=== PATIENT | female | born 1970 | race Hispanic/Latino ===

== ENCOUNTER 2017-09-24 10:52 | Emergency (ER) | payer MEDICARE, OTHER ==
[2017-09-24 11:15] VITALS: BP 121/68; PULSE 72; RESP 18; TEMP 98.3; O2SAT 96; BMI 19.3
[2017-09-24] MEDS ORDERED: TDAP Vaccine 0.5 mL Syr IM ONE (11:52)
--- NOTE | 2017-09-24 11:53 | ED PDOC ---
Arrival/HPI - General Chief Complaint: Trauma Time Seen by Provider: 09/24/17 11:52 Historian: Patient, Spouse - History of Present Illness Narrative History of Present Illness (Text): 09/24/17 11:53 This 47 yo female presents to this ED c/o RAMOS x COATER SLATE. Patient stated she slipped and ice, causing her to fall backwards. She denies loc, diplopia, n/v, or dizziness. She noted bleeding form the back of head. Last tetanus is UKN Time/Duration: Other (see hpi) Context: Home Past Medical History - Provider Review Nursing Documentation Reviewed: Yes - Infectious Disease Hx of Infectious Diseases: None - Tetanus Immunization Tetanus Immunization: Up to Date - Reproductive Menopause: Yes - Past Medical History Past Medical History: No Previous - Psychiatric Hx Psychophysiologic Disorder: No Hx Anxiety: Yes Hx Bipolar Disorder: Yes Hx Depression: Yes Hx Emotional Abuse: No Hx Hallucinations: No Hx Panic Disorder: No Hx Post Traumatic Stress Disorder: No Hx Psychosis: No Hx Physical Abuse: No Hx Schizophrenia: No Hx Sexual Abuse: No Hx Substance Use: Yes (3x's week) - Surgical History Hx Section: Yes - Anesthesia Hx Anesthesia: Yes Hx Anesthesia Reactions: No Hx Malignant Hyperthermia: No - Suicidal Assessment Feels Threatened In Home Enviroment: No Family/Social History - Physician Review Nursing Documentation Reviewed: Yes Family/Social History: Other (noncontributory) Smoking Status: Light Smoker < 10 Cigarettes Daily Hx Alcohol Use: Yes (sober 10yrs) Hx Substance Use: Yes (3x's week) Substance used: Marijuana Hx Substance Use Treatment: No Allergies/Home Meds Allergies/Adverse Reactions: Allergies No Known Allergies Allergy (Verified 09/24/17 11:21) Home Medications: Home Meds Medication Instructions Recorded Confirmed ARIPiprazole [Abilify] 5 mg PO DAILY 12/09/14 09/24/17 Dexlansoprazole [Dexilant] 60 mg PO DAILY 09/24/17 09/24/17 Divalproex [Depakote ER] 500 mg PO HS 09/24/17 09/24/17 diaZEpam [Valium] 5 mg PO TID 09/24/17 09/24/17 traZODone [Desyrel] 100 mg PO HS 09/24/17 09/24/17 Review of Systems - Review of Systems Constitutional: Normal. absent: Fatigue, Weight Change, Fevers Eyes: Normal ENT: Normal Respiratory: Normal Cardiovascular: Normal Gastrointestinal: Normal Genitourinary Female: Normal Musculoskeletal: Normal Skin: Laceration (scalp laceration) Neurological: Headache. absent: Dizziness, Focal Weakness, Gait Changes, Speech Changes, Facial Droop, Disequilibrium, Seizure Endocrine: Normal Hemo/Lymphatic: Normal Psychiatric: Normal Physical Exam Vital Signs Temp Pulse Resp BP Pulse Ox 09/24/17 11:13 98.3 F 72 18 121/68 96 Temperature: Afebrile Blood Pressure: Normal Pulse: Regular Respiratory Rate: Normal Appearance: Positive for: Well-Appearing, Non-Toxic, Comfortable Pain Distress: None Mental Status: Positive for: Alert and Oriented X 3 - Systems Exam Head: Present: Normocephalic, Laceration (posterior scalp laceration , approx. 2.6 cm, superficial), Other (no raccoon sign. No bailey sign) Pupils: Present: PERRL, Other (no hyphema) Extroacular Muscles: Present: EOMI. No: Entrapment Conjunctiva: Present: Normal Ears: Present: Normal, NORMAL TM, Other (no hemotympanum) Mouth: Present: Moist Mucous Membranes Neck: Present: Normal Range of Motion, Trachea Midline. No: Meningeal Signs, MIDLINE TENDERNESS, Lymphadenopathy Respiratory/Chest: Present: Clear to Auscultation, Good Air Exchange. No: Respiratory Distress, Accessory Muscle Use, Wheezes, Retracting, Rhonchi Cardiovascular: Present: Regular Rate and Rhythm, Normal S1, S2. No: Murmurs Abdomen: Present: Normal Bowel Sounds. No: Tenderness, Distention, Peritoneal Signs Back: Present: Normal Inspection Upper Extremity: Present: Normal Inspection, Normal ROM. No: Cyanosis, Edema Lower Extremity: Present: Normal Inspection, Normal ROM. No: Edema Neurological: Present: GCS=15, CN II-XII Intact, Speech Normal, Normal Sensory Function, Normal Cerebellar Funct, Gait Normal Skin: Present: Warm, Dry, Normal Color. No: Rashes Psychiatric: Present: Alert, Oriented x 3, Normal Insight, Normal Concentration Medical Decision Making ED Course and Treatment: 09/24/17 13:29 Re-evaluation. Patient feels better. Discussed results and plan with patient who expresses understanding. All questions answered and there is agreement with the plan to discharge home with instructions. Patient stable for discharge. Return if symptoms persist or worsen. Patient remained stable during the course of ED visit. CT scan was negative. One staple was used to close scalp laceration. Patient was recommended to have staple removed in 7 days, and to return to ED if RAMOS worsen, nausea, vomiting, diplopia, dizziness, abnormal gait or worsening of symptoms. Re-evaluation Time: 13:29 Reassessment Condition: Re-examined, Improved - RAD Interpretation Narrative RAD Interpretations (Text): 09/24/17 13:07 PROCEDURE: CT HEAD WITHOUT CONTRAST. HISTORY: RAMOS s/p trauma COMPARISON: Unenhanced head CT 09/29/2012 TECHNIQUE: Axial computed tomography images were obtained through the head/brain without intravenous contrast. Radiation dose: Total exam DLP = 770.58 mGy-cm. This CT exam was performed using one or more of the following dose reduction techniques: Automated exposure control, adjustment of the mA and/or kV according to patient size, and/or use of iterative reconstruction technique. FINDINGS: HEMORRHAGE: No intracranial hemorrhage. BRAIN: Normal cardenas-white matter differentiation and density are appreciated throughout the cerebrum and cerebellum with the brainstem appearing unremarkable as well. There is no mass effect. There is no suspicious extra-axial fluid collection and the midline brain anatomy appears diffusely unremarkable. VENTRICLES: Unremarkable. No hydrocephalus. CALVARIUM: No destructive bony lesion or displaced fracture identified including through the skullbase. PARANASAL SINUSES: Unremarkable as visualized. No significant inflammatory changes. MASTOID AIR CELLS: Unremarkable as visualized. No inflammatory changes. OTHER FINDINGS: None. IMPRESSION: Unremarkable unenhanced CT of the Head. No intracranial hemorrhage or fracture is appreciable. Overall stable appearance compared prior to dated 09/29/2012. Radiology Orders: 09/24/17 11:52 HEAD W/O CONTRAST [CT] Stat - Medication Orders Current Medication Orders: Discontinued Medications Tetanus/Reduced Diphtheria/Acell Pertussis (Boostrix Vaccine Inj) 0.5 ml IM .ONCE ONE Stop: 09/24/17 11:53 Last Admin: 09/24/17 12:39 Dose: 0.5 ml Immunization Registry Document 09/24/17 12:39 EWO (Rec: 09/24/17 12:39 EWO [id number]) Immunization Registry Consent Date 09/24/17 - Procedure PROCEDURE NOTE (Text): 09/24/17 13:29 PROCEDURE: LACERATION REPAIR Performed by the emergency provider Location: right posterior scalp Length: 2.6 cm Description: clean wound edges, no foreign bodies Distal CMS: Normal. No deficits. Neurovascularly intact. Anesthesia: none Preparation: The wound was cleaned with NS and Betadyne. The area was prepped and draped in the usual sterile fashion. Exploration: The wound was explored and no foreign bodies were found. Procedure: The wound was closed with narciso. There was good approximation. In total, one staple was used. Post-Procedure: Good closure and hemostasis. The patient tolerated the procedure well and there were no complications. CSM remains intact. Post procedure dressing applied. Disposition/Present on Arrival - Present on Arrival Any Indicators Present on Arrival: No History of DVT/PE: No History of Uncontrolled Diabetes: No Urinary Catheter: No History of Decub. Ulcer: No History Surgical Site Infection Following: None - Disposition Have Diagnosis and Disposition been Completed?: Yes Diagnosis: Head injury due to trauma, Scalp laceration Disposition: HOME/ ROUTINE Disposition Time: 13:32 Patient Plan: Discharge Patient Problems: Current Active Problems Problem Status Onset Head injury due to trauma Acute Scalp laceration Acute Condition: IMPROVED Discharge Instructions (ExitCare): Laceration Repair With Dailey (DC), Minor Head Injury Additional Instructions: Call private doctor for follow up visit in 1-2 days. Staple needs to be removed in 7 days. Keep wound clean and dry for 2 days, then clean wound with soap and water daily. Return to emergency if symptoms worsen. Prescriptions: Ibuprofen [Motrin] 600 mg PO Q8 PRN #20 tab PRN Reason: Pain, Severe (8-10) Referrals: Debra Galeano MD [Primary Care Provider] - Follow up with primary Forms: [employer] (Ethiopian), WORK NOTE
--- NOTE | 2017-09-24 12:38 | CT ---
PROCEDURE: CT HEAD WITHOUT CONTRAST. HISTORY: RAMOS s/p trauma COMPARISON: Unenhanced head CT 09/29/2012 TECHNIQUE: Axial computed tomography images were obtained through the head/brain without intravenous contrast. Radiation dose: Total exam DLP = 770.58 mGy-cm. This CT exam was performed using one or more of the following dose reduction techniques: Automated exposure control, adjustment of the mA and/or kV according to patient size, and/or use of iterative reconstruction technique. FINDINGS: HEMORRHAGE: No intracranial hemorrhage. BRAIN: Normal cardenas-white matter differentiation and density are appreciated throughout the cerebrum and cerebellum with the brainstem appearing unremarkable as well. There is no mass effect. There is no suspicious extra-axial fluid collection and the midline brain anatomy appears diffusely unremarkable. VENTRICLES: Unremarkable. No hydrocephalus. CALVARIUM: No destructive bony lesion or displaced fracture identified including through the skullbase. PARANASAL SINUSES: Unremarkable as visualized. No significant inflammatory changes. MASTOID AIR CELLS: Unremarkable as visualized. No inflammatory changes. OTHER FINDINGS: None. IMPRESSION: Unremarkable unenhanced CT of the Head. No intracranial hemorrhage or fracture is appreciable. Overall stable appearance compared prior to dated 09/29/2012.
== END 2017-09-24 13:51 | disposition home or self-care (01) ==
LOC: ED 10:52
DX: S01.01XA Laceration without foreign body of scalp, initial encounter (principal); W00.0XXA Fall on same level due to ice and snow, initial encounter; Y92.89 Other specified places as the place of occurrence of the external cause; Z23 Encounter for immunization

== ENCOUNTER 2017-10-02 11:30 | Emergency (ER) | payer MEDICARE, OTHER ==
[2017-10-02 11:36] VITALS: BMI 19.3
[2017-10-02 11:38] VITALS: BP 95/63; PULSE 73; RESP 19; TEMP 98; O2SAT 99
--- NOTE | 2017-10-02 12:05 | ED PDOC ---
Arrival/HPI - General Chief Complaint: Suture/Staple Removal Time Seen by Provider: 10/02/17 11:52 Historian: Patient - History of Present Illness Narrative History of Present Illness (Text): 10/02/17 11:59 47yo female [id number] for staple removal from her scalp. Ely was placed here on 09/24/17. she denies any headache, purulent discharge, any other complaint. Past Medical History - Provider Review Nursing Documentation Reviewed: Yes - Infectious Disease Hx of Infectious Diseases: None - Tetanus Immunization Tetanus Immunization: Up to Date - Past Medical History Past Medical History: No Previous - Cardiac Hx Pacemaker: No - Neurological Hx Paralysis: No - Hematological/Oncological Hx Blood Transfusions: No - Musculoskeletal/Rheumatological Hx Musculoskeletal Disorders: No - Psychiatric Hx Psychophysiologic Disorder: No Hx Anxiety: Yes Hx Bipolar Disorder: Yes Hx Depression: Yes Hx Emotional Abuse: No Hx Hallucinations: No Hx Panic Disorder: No Hx Post Traumatic Stress Disorder: No Hx Psychosis: No Hx Physical Abuse: No Hx Schizophrenia: No Hx Sexual Abuse: No Hx Substance Use: Yes (SMOKES MARIJUANA NIGHTLY "IT HELPS ME SLEEP") - Surgical History Hx Section: Yes - Anesthesia Hx Anesthesia Reactions: No Hx Malignant Hyperthermia: No - Suicidal Assessment Feels Threatened In Home Enviroment: No Family/Social History - Physician Review Nursing Documentation Reviewed: Yes Family/Social History: Unknown Family HX Smoking Status: Light Smoker < 10 Cigarettes Daily Hx Alcohol Use: Yes (sober 10yrs) Hx Substance Use: Yes (SMOKES MARIJUANA NIGHTLY "IT HELPS ME SLEEP") Substance used: Marijuana Hx Substance Use Treatment: No Allergies/Home Meds Allergies/Adverse Reactions: Allergies No Known Allergies Allergy (Verified 10/02/17 11:36) Home Medications: Home Meds Medication Instructions Recorded Confirmed ARIPiprazole [Abilify] 5 mg PO DAILY 12/09/14 10/02/17 Dexlansoprazole [Dexilant] 60 mg PO DAILY 09/24/17 10/02/17 Divalproex [Depakote ER] 500 mg PO HS 09/24/17 10/02/17 diaZEpam [Valium] 5 mg PO TID 09/24/17 10/02/17 traZODone [Desyrel] 100 mg PO HS 09/24/17 10/02/17 Cholecalciferol (Vitamin D3) 50,000 unit PO MON 10/01/17 10/02/17 [Vitamin D3] Review of Systems - Physician Review All systems were reviewed & negative as marked: Yes - Review of Systems Constitutional: Normal Eyes: Normal ENT: Normal Respiratory: Normal Cardiovascular: Normal Gastrointestinal: Normal Genitourinary Female: Normal Musculoskeletal: Normal Skin: Other (Ely noted in place to her posterior scalp) Neurological: Normal Endocrine: Normal Hemo/Lymphatic: Normal Psychiatric: Normal Physical Exam Vital Signs Reviewed: Yes Vital Signs Temp Pulse Resp BP Pulse Ox 10/02/17 11:38 98.0 F 73 19 95/63 L 99 10/02/17 11:37 98.0 F 73 19 95/63 L 99 Temperature: Afebrile Blood Pressure: Normal Pulse: Regular Respiratory Rate: Normal Appearance: Positive for: Well-Appearing, Non-Toxic, Comfortable Pain Distress: None Mental Status: Positive for: Alert and Oriented X 3 - Systems Exam Head: Present: Atraumatic, Normocephalic Pupils: Present: PERRL Extroacular Muscles: Present: EOMI Conjunctiva: Present: Normal Mouth: Present: Moist Mucous Membranes Neck: Present: Normal Range of Motion Respiratory/Chest: Present: Clear to Auscultation, Good Air Exchange. No: Respiratory Distress, Accessory Muscle Use Cardiovascular: Present: Regular Rate and Rhythm, Normal S1, S2. No: Murmurs Abdomen: Present: Normal Bowel Sounds. No: Tenderness, Distention, Peritoneal Signs Back: Present: Normal Inspection Upper Extremity: Present: Normal Inspection. No: Cyanosis, Edema Lower Extremity: Present: Normal Inspection. No: Edema Neurological: Present: GCS=15, CN II-XII Intact, Speech Normal Skin: Present: Warm, Dry, Normal Color, Other (One staple noted to posterior scalp. No erythema. No purulent discharge. No swelling). No: Rashes Psychiatric: Present: Alert, Oriented x 3, Normal Insight, Normal Concentration Medical Decision Making ED Course and Treatment: 10/02/17 12:11 One staple removed. Edges appear approximated. Disposition/Present on Arrival - Present on Arrival Any Indicators Present on Arrival: No History of DVT/PE: No History of Uncontrolled Diabetes: No Urinary Catheter: No History of Decub. Ulcer: No History Surgical Site Infection Following: None - Disposition Have Diagnosis and Disposition been Completed?: Yes Diagnosis: Removal of staple Disposition: HOME/ ROUTINE Disposition Time: 12:05 Patient Plan: Discharge Condition: STABLE Discharge Instructions (ExitCare): Staple Removal Additional Instructions: Keep wound clean and dry Follow up with your doctor Return to ED for any new or worsening symptoms Referrals: [facility] [place] - Follow up with primary Forms: [employer] (Greenlandic)
== END 2017-10-02 12:32 | disposition home or self-care (01) ==
LOC: ED 11:30
DX: Z48.02 Encounter for removal of sutures (principal); F17.210 Nicotine dependence, cigarettes, uncomplicated

== ENCOUNTER 2017-10-14 10:44 | Day surgery (SDC) | payer MEDICARE, OTHER ==
[2017-10-14 11:55] LABS: BASO # 0.03 K/mm3 (0.0-2.0); BASO % 0.5 % (0.0-3.0); EOS # 0.2 (0.0-0.7); EOS % 3.5 % (1.5-5.0); GRAN # 3.39 (1.4-6.5); GRAN % 51.6 % (50.0-68.0); HEMOGLOBIN 14.5 g/dL (12.0-16.0); LYMPH # 2.6 (1.2-3.4); LYMPH % 38.9 % (22.0-35.0); MEAN CELL VOLUME 92.6 fl (80.0-105.0); MEAN CORPUSCULAR HEMOGLOBIN 32.6 pg (25.0-35.0); MEAN CORPUSCULAR HGB CONC 35.2 g/dl (31.0-37.0); MEAN PLATELET VOLUME 11.3 fl (7.0-11.0); MONO # 0.4 (0.1-0.6); MONO % 5.5 % (1.0-6.0); RBC 4.45 10^6/uL (3.5-6.1); RED CELL DISTRIBUTION WIDTH 12.6 % (11.5-14.5); WHITE BLOOD COUNT 6.6 10^3/ul (4.5-11.0)
[2017-10-14 12:04] LABS: BLOOD UREA NITROGEN 16 mg/dL (7-21); CALCIUM 10.4 mg/dL (8.4-10.5); GFR AFRICAN-AMERICAN > 60; GFR NON-AFRICAN AMERICAN > 60; INR 1.04 (0.93-1.08); PARTIAL THROMBOPLASTIN TIME 29.2 Seconds (25.1-36.5)
[2017-10-14] MEDS ORDERED: Midazolam 2 MG/2 ML VIAL ONE ×2 (12:30→13:01)
[2017-10-14] MEDS ORDERED: Oxycodone/Acetaminophen 5/325 mg Tab PO PRN (13:19)
[2017-10-14] MEDS ORDERED: Sodium Chloride 0.45% 1,000 ML IV SCH (13:30)
[2017-10-14 14:36] VITALS: TEMP 97.9
--- NOTE | 2017-10-14 15:09 | US ---
PROCEDURE: Ultrasound-guided left thyroid fine needle aspiration biopsy. CLINICAL HISTORY: Dominant 12 mm hypoechoic left thyroid nodule with microcalcifications evaluate for malignancy. . PHYSICIAN(S): Prosper Le M.D. TECHNIQUE: The relative risks and indications for the procedure were explained to the patient and consent obtained. The patient was placed supine on the stretcher with the neck extended and preliminary sonography of the thyroid performed. This reveal well-circumscribed hypoechoic 12 mm nodule with microcalcification. The remainder of the thyroid parenchyma is homogeneous in echotexture. The neck was prepped and draped in the usual sterile fashion. Conscious sedation and monitoring were provided throughout the procedure by a nurse. 1% Xylocaine was used to anesthetize the skin and soft tissues at the access site. Three passes with a 22-gauge needle were performed under ultrasound guidance for fine needle aspiration of the elbow mm left thyroid nodule. The slides were reviewed by pathology and deemed adequate. The patient tolerated the procedure well. IMPRESSION: 1. Ultrasound guided fine needle aspiration of a 12 mm hypoechoicnodule in the left thyroid.
[2017-10-15 11:05] VITALS: BP 132/79; PULSE 70; RESP 18; O2SAT 97
== END 2017-10-14 15:18 | disposition home or self-care (01) ==
LOC: SDS 10:44
PROVIDERS: ATTEND Radiology Vascular & Interventional Radiology
DX: E04.1 Nontoxic single thyroid nodule (principal); F17.200 Nicotine dependence, unspecified, uncomplicated; F41.9 Anxiety disorder, unspecified; F32.89 Other specified depressive episodes; K29.70 Gastritis, unspecified, without bleeding; K25.9 Gastric ulcer, unspecified as acute or chronic, without hemorrhage or perforation; K21.9 Gastro-esophageal reflux disease without esophagitis; F12.90 Cannabis use, unspecified, uncomplicated
CPT/HCPCS: 10022; 36415; 76942; 80048; 84703; 85025; 85610; 85730; 88173; 88305; J2001; J2250; J2405; J3010; J7030

== ENCOUNTER 2018-02-07 12:47 | Emergency (ER) | payer MEDICARE, OTHER ==
[2018-02-07 12:48] VITALS: BMI 19.3
[2018-02-07 12:57] VITALS: RESP 18
--- NOTE | 2018-02-07 13:06 | ED PDOC ---
Arrival/HPI - General Chief Complaint: Substance Abuse Time Seen by Provider: 02/07/18 12:48 Historian: Patient, EMS - History of Present Illness Narrative History of Present Illness (Text): 02/07/18 13:00 47 year old female, whose PMH includes substance abuse, who presents to the emergency department via EMS, s/p being found on the street with ETOH intoxication. Patient reports she is currently asymptomatic and admits to suing marijuana today and 2 bags of heroin one day ago. Patient commonly uses 2 bags of heroin. Patient denies chest pain, shortness of breath, headache, dizziness, nausea, vomiting, diarrhea, or other complaints. Time/Duration: Prior to Arrival Symptom Onset: Sudden Symptom Course: Unchanged Context: Street Past Medical History - Provider Review Nursing Documentation Reviewed: Yes - Infectious Disease Hx of Infectious Diseases: None - Tetanus Immunization Tetanus Immunization: Up to Date - Reproductive Menopause: Yes - Past Medical History Past Medical History: No Previous - Cardiac Hx Cardiac Disorders: No Hx Pacemaker: No - Pulmonary Hx Respiratory Disorders: No - Neurological Hx Paralysis: No - Hematological/Oncological Hx Blood Transfusions: No - Musculoskeletal/Rheumatological Hx Musculoskeletal Disorders: No - Psychiatric Hx Emotional Abuse: No Hx Physical Abuse: No Hx Substance Use: Yes (SMOKES MARIJUANA NIGHTLY "IT HELPS ME SLEEP") - Surgical History Hx Section: Yes - Anesthesia Hx Anesthesia Reactions: No Hx Malignant Hyperthermia: No - Suicidal Assessment Feels Threatened In Home Enviroment: No Family/Social History - Physician Review Nursing Documentation Reviewed: Yes Family/Social History: Unknown Family HX Smoking Status: Light Smoker < 10 Cigarettes Daily Hx Alcohol Use: Yes (sober 10yrs) Hx Substance Use: Yes (SMOKES MARIJUANA NIGHTLY "IT HELPS ME SLEEP") Substance used: heroin Hx Substance Use Treatment: No Allergies/Home Meds Allergies/Adverse Reactions: Allergies No Known Allergies Allergy (Verified 10/02/17 11:36) Home Medications: Home Meds Medication Instructions Recorded Confirmed ARIPiprazole [Abilify] 5 mg PO DAILY 12/09/14 10/14/17 Dexlansoprazole [Dexilant] 60 mg PO DAILY 09/24/17 10/14/17 Divalproex [Depakote ER] 500 mg PO HS 09/24/17 10/14/17 diaZEpam [Valium] 5 mg PO TID 09/24/17 10/14/17 traZODone [Desyrel] 100 mg PO HS 09/24/17 10/14/17 Cholecalciferol (Vitamin D3) 50,000 unit PO MON 10/01/17 10/14/17 [Vitamin D3] Review of Systems - Physician Review All systems were reviewed & negative as marked: Yes - Review of Systems Systems not reviewed;Unavailable: Intoxicated Respiratory: absent: SOB Cardiovascular: absent: Chest Pain Physical Exam Vital Signs Reviewed: Yes Vital Signs Temp Pulse Resp BP Pulse Ox 02/07/18 15:48 97.6 F 60 110/63 95 02/07/18 15:12 97.6 F 60 18 110/63 95 02/07/18 12:56 98.0 F 85 18 95/55 L 95 Temperature: Afebrile Blood Pressure: Hypotensive Pulse: Regular Respiratory Rate: Normal Appearance: Positive for: Comfortable. No: Non-Toxic Pain Distress: None - Systems Exam Head: Present: Atraumatic, Normocephalic Pupils: Present: Pinpoint Extroacular Muscles: Present: EOMI Conjunctiva: Present: Normal Respiratory/Chest: Present: Clear to Auscultation, Good Air Exchange. No: Respiratory Distress, Accessory Muscle Use, Wheezes, Decreased Breath Sounds, Rales, Retracting, Rhonchi Cardiovascular: Present: Regular Rate and Rhythm, Normal S1, S2. No: Murmurs Abdomen: Present: Normal Bowel Sounds. No: Tenderness, Distention, Peritoneal Signs, Rebound, Guarding Neurological: Present: GCS=15, CN II-XII Intact Skin: Present: Warm, Dry, Normal Color. No: Rashes Psychiatric: Present: Alert, Intoxicated. 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 - Scribe Statement The provider has reviewed the documentation as recorded by the Rosalbaibsiena Correa Provider Scribe Attestation: All medical record entries made by the Scribe were at my direction and personally dictated by me. I have reviewed the chart and agree that the record accurately reflects my personal performance of the history, physical exam, medical decision making, and the department course for this patient. I have also personally directed, reviewed, and agree with the discharge instructions and disposition. Disposition/Present on Arrival - Present on Arrival Any Indicators Present on Arrival: No History of DVT/PE: No History of Uncontrolled Diabetes: No Urinary Catheter: No History of Decub. Ulcer: No History Surgical Site Infection Following: None - Disposition Have Diagnosis and Disposition been Completed?: Yes Diagnosis: Drug abuse Disposition: HOME/ ROUTINE Disposition Time: 15:00 Condition: GOOD Discharge Instructions (ExitCare): Drug Abuse and Drug Addiction (DC), Drug Abuse Treatment Additional Instructions: MARY MEDINA, thank you for letting us take care of you today. Your provider was Scottie Slaughter DO and you were treated for SUBSTANCE ABUSE. The emergency medical care you received today was directed at your acute symptoms. If you were prescribed any medication, please fill it and take as directed. It may take several days for your symptoms to resolve. Return to the Emergency Department if your symptoms worsen, do not improve, or if you have any other problems. Please contact your doctor or call one of the physicians/clinics you have been referred to that are listed on the Patient Visit Information form that is included in your discharge packet. Bring any paperwork you were given at discharge with you along with any medications you are taking to your follow up visit. Our treatment cannot replace ongoing medical care by a primary care provider outside of the emergency department. Thank you for allowing the [facility] team to be part of your care today. Please look into going into a drug treatment program for your heroin abuse. Follow up with your primary care doctor this week. Forms: [employer] (Arabic)
[2018-02-07 15:19] VITALS: BP 110/63; PULSE 60
[2018-02-07 15:47] VITALS: TEMP 97.6
[2018-02-07 15:49] VITALS: O2SAT 95
== END 2018-02-07 15:48 | disposition home or self-care (01) ==
LOC: ED 12:47
DX: F19.10 Other psychoactive substance abuse, uncomplicated (principal); F17.210 Nicotine dependence, cigarettes, uncomplicated

== ENCOUNTER 2018-05-15 07:38 | Emergency (ER) | payer MEDICARE, OTHER ==
[2018-05-15 07:38] VITALS: BMI 19.3
[2018-05-15 07:51] VITALS: RESP 18
[2018-05-15] MEDS ORDERED: Sodium Chloride 0.9% 1,000 ML IV STA (08:13)
--- NOTE | 2018-05-15 08:21 | ED PDOC ---
Arrival/HPI - General Chief Complaint: Abdominal Pain Time Seen by Provider: 05/15/18 08:07 Historian: Patient - History of Present Illness Narrative History of Present Illness (Text): 05/15/18 08:25 A 48 year old female, whose past medical history includes substance abuse and bipolar disorder, presents to the emergency department complaining of abdominal pain, fever, chills, nausea, and vomiting for the past 2 days. Patient reports having the flu for 2 days. Patient denies any other complaints at this time. PMD: Dr. Galeano Past Medical History - Provider Review Nursing Documentation Reviewed: Yes - Infectious Disease Hx of Infectious Diseases: None - Tetanus Immunization Tetanus Immunization: Up to Date - Reproductive Menopause: No - Past Medical History Past Medical History: No Previous - Cardiac Hx Cardiac Disorders: No Hx Pacemaker: No - Pulmonary Hx Respiratory Disorders: No - Neurological Hx Paralysis: No - Hematological/Oncological Hx Blood Transfusions: No - Musculoskeletal/Rheumatological Hx Musculoskeletal Disorders: No - Psychiatric Hx Emotional Abuse: No Hx Physical Abuse: No Hx Substance Use: Yes (SMOKES MARIJUANA NIGHTLY "IT HELPS ME SLEEP") - Surgical History Hx Section: Yes - Anesthesia Hx Anesthesia Reactions: No Hx Malignant Hyperthermia: No - Suicidal Assessment Feels Threatened In Home Enviroment: No Family/Social History - Physician Review Nursing Documentation Reviewed: Yes Family/Social History: No Known Family HX Smoking Status: Light Smoker < 10 Cigarettes Daily Hx Alcohol Use: Yes (sober 10yrs) Hx Substance Use: Yes (SMOKES MARIJUANA NIGHTLY "IT HELPS ME SLEEP") Substance used: heroin Hx Substance Use Treatment: No Allergies/Home Meds Allergies/Adverse Reactions: Allergies No Known Allergies Allergy (Verified 10/02/17 11:36) Home Medications: Home Meds Medication Instructions Recorded Confirmed ARIPiprazole [Abilify] 5 mg PO DAILY 12/09/14 10/14/17 Dexlansoprazole [Dexilant] 60 mg PO DAILY 09/24/17 10/14/17 Divalproex [Depakote ER] 500 mg PO HS 09/24/17 10/14/17 RX: traZODone [Desyrel] 100 mg PO HS 09/24/17 10/14/17 diaZEpam [Valium] 5 mg PO TID 09/24/17 10/14/17 Cholecalciferol (Vitamin D3) 50,000 unit PO MON 10/01/17 10/14/17 [Vitamin D3] Review of Systems - Physician Review All systems were reviewed & negative as marked: Yes - Review of Systems Constitutional: Fevers, Night Sweats Respiratory: absent: SOB, Cough Cardiovascular: absent: Chest Pain, Palpitations Gastrointestinal: Abdominal Pain, Nausea, Vomiting. absent: Diarrhea Genitourinary Female: absent: Urine Output Changes Neurological: absent: Headache, Dizziness Physical Exam Vital Signs Reviewed: Yes Vital Signs Temp Pulse Resp BP Pulse Ox 05/15/18 07:48 98.3 F 67 18 109/84 99 Temperature: Afebrile Blood Pressure: Normal Pulse: Regular Respiratory Rate: Normal Appearance: Positive for: Well-Appearing, Non-Toxic, Comfortable Pain Distress: None Mental Status: Positive for: Alert and Oriented X 3 - Systems Exam Head: Present: Atraumatic, Normocephalic Pupils: Present: PERRL Extroacular Muscles: Present: EOMI Conjunctiva: Present: Normal Mouth: Present: Moist Mucous Membranes Neck: Present: Normal Range of Motion Respiratory/Chest: Present: Clear to Auscultation, Good Air Exchange. No: Respiratory Distress, Accessory Muscle Use Cardiovascular: Present: Regular Rate and Rhythm, Normal S1, S2. No: Murmurs Abdomen: Present: Tenderness (epigastric region) Back: Present: Normal Inspection Upper Extremity: Present: Normal Inspection. No: Cyanosis, Edema Lower Extremity: Present: Normal Inspection. No: Edema Neurological: Present: GCS=15, CN II-XII Intact, Speech Normal Skin: Present: Warm, Dry, Normal Color. No: Rashes Psychiatric: Present: Alert, Oriented x 3, Normal Insight, Normal Concentration, Anxious Medical Decision Making ED Course and Treatment: 05/15/18 08:22 Impression: 48 female with abdominal pain, fever ,chills , vomiting, nausea. Physical exam shows patient appears to be anxious and has epigastric tenderness. h/o of. suspect gastrits vs pud, vs pancreatitsi. Plan: -- Chest X-ray -- Abd/Pelvis CT -- Labs -- Zofran -- Protonix -- Urinalysis -- Reassess and disposition Prior Visits: Notes and results from previous visits were reviewed. Patient was last seen in the emergency department on 02/07/2018 for ETOH intoxication. Patient was discharged home. Progress Notes: 05/15/2018 10:11 Chest X-ray IMPRESSION: No active pulmonary disease. Dictator: Nori Booker MD 05/15/2018 10:37 Abd/Pelvis CT IMPRESSION: No acute abdominal or pelvic abnormality. Tiny low-attenuation areas in the liver are too small to characterize by CT criteria. Punctate non-o bstructing stone in the lower pole of the right kidney. Dictator: Nori Booker MD 05/15/18 10:43 Patient has been asking for food. Patient is currently stable and states will make an appointment to see PMD in 2 days. 05/15/18 10:48 05/15/18 11:32 labs mild luekocytosis. cxr neg. abd ct neg. pt asking for food - Lab Interpretations I have reviewed the lab results: Yes - RAD Interpretation Radiology Orders: 05/15/18 08:10 CHEST PORTABLE [RAD] Stat - Medication Orders Current Medication Orders: Sodium Chloride (Sodium Chloride 0.9%) 1,000 mls @ 999 mls/hr IV .Q1H1M STA Stop: 05/15/18 09:13 Discontinued Medications Ondansetron HCl (Zofran Inj) 4 mg IVP STAT STA Stop: 05/15/18 08:13 Pantoprazole Sodium (Protonix Inj) 40 mg IVP STAT STA Stop: 05/15/18 08:13 - Scribe Statement The provider has reviewed the documentation as recorded by the Eliana Fritz Provider Scribe Attestation: All medical record entries made by the Scribe were at my direction and personally dictated by me. I have reviewed the chart and agree that the record accurately reflects my personal performance of the history, physical exam, medical decision making, and the department course for this patient. I have also personally directed, reviewed, and agree with the discharge instructions and disposition. Disposition/Present on Arrival - Present on Arrival Any Indicators Present on Arrival: No History of DVT/PE: No History of Uncontrolled Diabetes: No Urinary Catheter: No History of Decub. Ulcer: No History Surgical Site Infection Following: None - Disposition Have Diagnosis and Disposition been Completed?: Yes Diagnosis: Abdominal pain, Leukocytosis Disposition: HOME/ ROUTINE Disposition Time: 10:50 Condition: STABLE Discharge Instructions (ExitCare): Acute Abdomen (Belly Pain), Adult (DC) Additional Instructions: please follow up with your doctor and specialist. return to er with worsening symptoms or concerns. you will need further testing as an outpatient, repeat lab work. return immediately with any worsening. Prescriptions: Famotidine [Pepcid] 20 mg PO DAILY #20 tab Referrals: Hayden Shearer MD [Staff Provider] - Follow up with primary Forms: [employer] (Kinyarwanda)
[2018-05-15 08:56] LABS: BASO # 0.02 K/mm3 (0.0-2.0); BASO % 0.2 % (0.0-3.0); EOS # 0.1 (0.0-0.7); GRAN # 8.78 (1.4-6.5); GRAN % 70.6 % (50.0-68.0); HEMOGLOBIN 13.9 g/dL (12.0-16.0); LYMPH # 2.8 (1.2-3.4); LYMPH % 22.2 % (22.0-35.0); MEAN CELL VOLUME 92.9 fl (80.0-105.0); MEAN CORPUSCULAR HEMOGLOBIN 31.7 pg (25.0-35.0); MEAN CORPUSCULAR HGB CONC 34.2 g/dl (31.0-37.0); MONO # 0.8 (0.1-0.6); RBC 4.38 10^6/uL (3.5-6.1); RED CELL DISTRIBUTION WIDTH 12.7 % (11.5-14.5); WHITE BLOOD COUNT 12.5 10^3/uL (4.5-11.0)
[2018-05-15 09:07] LABS: INR 0.99; PARTIAL THROMBOPLASTIN TIME 26.2 Seconds (25.1-36.5); PROTHROMBIN TIME 11.4 SECONDS (9.4-12.5)
[2018-05-15 09:09] LABS: ALB/GLOB RATIO 1.2 (1.1-1.8); ALBUMIN 4.7 g/dL (3.0-4.8); ALT/SGPT 40 U/L (7-56); AST/SGOT 37 U/L (14-36); BLOOD UREA NITROGEN 17 mg/dL (7-21); CALCIUM 10.8 mg/dL (8.4-10.5); GFR NON-AFRICAN AMERICAN > 60; LIPASE 62 U/L (23-300)
[2018-05-15] MEDS ORDERED: Iohexol 350 MG/100 ML VIAL ONE (09:34)
[2018-05-15 09:53] LABS: PH,URINE 7.5 (4.7-8.0); URINE BILIRUBIN NEGATIVE (NEGATIVE); URINE BLOOD TRACE-INTACT (NEGATIVE); URINE GLUCOSE (UA) NEGATIVE (NEGATIVE); URINE LEUKOCYTE ESTERASE NEGATIVE Leu/uL (NEGATIVE); URINE PROTEIN 100 mg/dL (<30 mg/dL); URINE UROBILINOGEN 0.2 E.U./dL (<1 E.U./dL)
[2018-05-15 09:54] LABS: URINE APPEARANCE SL CLOUDY (CLEAR); URINE COLOR YELLOW (YELLOW)
[2018-05-15 09:57] LABS: HCG,QUALITATIVE URINE NEGATIVE (NEGATIVE)
[2018-05-15 10:11] LABS: URINE RBC 0 - 2 /hpf (0-2)
[2018-05-15 10:12] LABS: URINE AMORPHOUS SEDIMENT SMALL
--- NOTE | 2018-05-15 10:15 | RAD ---
Date of service: 05/15/2018 HISTORY: Abdominal pain COMPARISON: 01/01/2015. FINDINGS: LUNGS: The lungs are well inflated and clear. PLEURA: No pleural effusions or pneumothorax. CARDIOVASCULAR: The heart is normal in size. No aortic atherosclerotic calcification present. OSSEOUS STRUCTURES: Within normal limits for the patient's age. VISUALIZED UPPER ABDOMEN: Normal. OTHER FINDINGS: Nodular densities overlying the lower lobes are compatible with nipple shadows. IMPRESSION: No active pulmonary disease.
--- NOTE | 2018-05-15 10:40 | CT ---
Date of service: 05/15/2018 PROCEDURE: CT Abdomen and Pelvis with contrast HISTORY: Upper abdominal pain COMPARISON: None. TECHNIQUE: CT scan of the abdomen and pelvis was performed without administration of intravenous contrast. Oral contrast was not administered. Coronal and sagittal reformatted images were obtained. Contrast dose: 100 mL Omnipaque 350 Radiation dose: Total exam DLP = 204.64 mGy-cm. This CT exam was performed using one or more of the following dose reduction techniques: Automated exposure control, adjustment of the mA and/or kV according to patient size, and/or use of iterative reconstruction technique. FINDINGS: LOWER THORAX: The visualized lungs are clear. LIVER: The liver is normal in size and there is homogeneous enhancement. There are tiny scattered low-attenuation areas in the liver, too small to characterize by CT criteria. No intrahepatic biliary ductal dilatation. GALLBLADDER AND BILE DUCTS: The gallbladder is contracted. PANCREAS: The pancreas is normal in size with homogeneous enhancement. No gross lesion or ductal dilatation. SPLEEN: Normal in size and appearance. ADRENALS: No discrete nodule. KIDNEYS AND URETERS: Normal in size with homogeneous enhancement. There is a punctate nonobstructing stone in the lower pole of the right kidney. No hydronephrosis. No solid mass. VASCULATURE: No aortic aneurysm. BOWEL: The small bowel loops are normal in caliber. No bowel dilatation or obstruction. The colon is unremarkable. APPENDIX: The appendix is not distinctly visualized however there are no inflammatory changes in the right lower quadrant PERITONEUM: No free fluid. No free air. LYMPH NODES: No enlarged lymph nodes. BLADDER: Partially decompressed. REPRODUCTIVE: The uterus is retroverted and normal in size. BONES: No acute fracture. There are bilateral pars interarticularis defects at L5 with mild anterior listhesis of L5 on S1. OTHER FINDINGS: None. IMPRESSION: No acute abdominal or pelvic abnormality. Tiny low-attenuation areas in the liver are too small to characterize by CT criteria. Punctate nonobstructing stone in the lower pole of the right kidney.
[2018-05-15 10:50] VITALS: O2SAT 98
[2018-05-15 10:52] VITALS: BP 132/77; PULSE 77; TEMP 98.7
--- NOTE | 2018-05-16 09:33 | CARD ---
APPROVED REPORT Date of service: 05/15/2018 EKG Measurement Heart [id number] ID [id number] <Conclusion> Normal sinus rhythm LVH by voltage,new J-point elevations
== END 2018-05-15 10:51 | disposition home or self-care (01) ==
LOC: ED 07:38
DX: D72.829 Elevated white blood cell count, unspecified (principal); R10.9 Unspecified abdominal pain; F31.9 Bipolar disorder, unspecified; F19.10 Other psychoactive substance abuse, uncomplicated
CPT/HCPCS: 71045; 74177; 80053; 80164; 81001; 83690; 83735; 84703; 85025; 85610; 85730; 93005; 96361; 96374; 96375; 99283; C9113; J2405; J7030; Q9967

== ENCOUNTER 2018-05-23 08:53 | Inpatient (IN) | payer MEDICARE, OTHER ==
[2018-05-23 09:18] VITALS: BMI 17.7
[2018-05-23 10:00] LABS: ALB/GLOB RATIO 1.2 (1.1-1.8); ALBUMIN 4.3 g/dL (3.0-4.8); ALT/SGPT 43 U/L (7-56); AST/SGOT 31 U/L (14-36); BLOOD UREA NITROGEN 18 mg/dL (7-21); CALCIUM 9.7 mg/dL (8.4-10.5); GFR NON-AFRICAN AMERICAN > 60
[2018-05-23 10:03] LABS: PH,URINE 6.5 (4.7-8.0); URINE BILIRUBIN NEGATIVE (NEGATIVE); URINE BLOOD TRACE-LYSED (NEGATIVE); URINE GLUCOSE (UA) NEGATIVE (NEGATIVE); URINE LEUKOCYTE ESTERASE NEGATIVE Leu/uL (NEGATIVE); URINE PROTEIN NEGATIVE mg/dL (<30 mg/dL); URINE UROBILINOGEN 0.2 E.U./dL (<1 E.U./dL)
[2018-05-23 10:06] LABS: URINE APPEARANCE CLEAR (CLEAR); URINE COLOR YELLOW (YELLOW)
[2018-05-23 10:10] LABS: BARBITURATES, UR NEGATIVE (NEGATIVE); BENZODIAZEPINES, UR NEGATIVE (NEGATIVE); OPIATES, UR NEGATIVE (NEGATIVE); PHENCYCLIDINE, UR NEGATIVE (NEGATIVE)
[2018-05-23 10:11] LABS: BASO # 0.04 K/mm3 (0.0-2.0); BASO % 0.5 % (0.0-3.0); EOS # 0.2 (0.0-0.7); EOS % 2.6 % (1.5-5.0); GRAN # 4.6 (1.4-6.5); GRAN % 56.8 % (50.0-68.0); HEMOGLOBIN 13.5 g/dL (12.0-16.0); LYMPH # 2.8 (1.2-3.4); LYMPH % 34.2 % (22.0-35.0); MEAN CELL VOLUME 95.5 fl (80.0-105.0); MEAN CORPUSCULAR HGB CONC 33.5 g/dl (31.0-37.0); MEAN PLATELET VOLUME 10.2 fl (7.0-11.0); MONO # 0.5 (0.1-0.6); MONO % 5.9 % (1.0-6.0); RBC 4.22 10^6/uL (3.5-6.1); RED CELL DISTRIBUTION WIDTH 12.9 % (11.5-14.5); WHITE BLOOD COUNT 8.1 10^3/uL (4.5-11.0)
--- NOTE | 2018-05-23 10:16 | ED PDOC ---
Arrival/HPI - General Chief Complaint: Psychiatric Evaluation Time Seen by Provider: 05/23/18 08:55 Historian: Patient - History of Present Illness Narrative History of Present Illness (Text): 05/23/18 10:12 48 year old female, whose past medical history includes substance abuse and bipolar disorder, presents to the emergency department complaining of being in a manic state. She reports experiencing anxiety and insomnia all triggered from daughter's anniversary. She reports she is currently not experiencing sucidal thoughts, but explains "she feels it coming along, as well as negative thoughts." Patient states she called her psychiatrist who did not answer, so instead went to see her PMD, who instructed her to be seen in the ER for evaluation. She currently takes Abilify 5 mg/daily and Valium 5 mg/daily with her last dose of Abilify taken last night. Patient denies any suicidal/homicidal ideation, or any other complaints at this time. PMD: Dr. Galeano Past Medical History - Provider Review Nursing Documentation Reviewed: Yes - Infectious Disease Hx of Infectious Diseases: None - Tetanus Immunization Tetanus Immunization: Up to Date - Past Medical History Past Medical History: No Previous - Cardiac Hx Cardiac Disorders: No Hx Pacemaker: No - Pulmonary Hx Respiratory Disorders: No - Neurological Hx Paralysis: No - Hematological/Oncological Hx Blood Transfusions: No - Musculoskeletal/Rheumatological Hx Musculoskeletal Disorders: No - Psychiatric Hx Psychophysiologic Disorder: Yes Hx Bipolar Disorder: Yes Hx Emotional Abuse: No Hx Physical Abuse: No Hx Substance Use: Yes (SMOKES MARIJUANA NIGHTLY "IT HELPS ME SLEEP") - Surgical History Hx Section: Yes - Anesthesia Hx Anesthesia Reactions: No Hx Malignant Hyperthermia: No - Suicidal Assessment Feels Threatened In Home Enviroment: No Family/Social History - Physician Review Nursing Documentation Reviewed: Yes Family/Social History: No Known Family HX Smoking Status: Light Smoker < 10 Cigarettes Daily Hx Alcohol Use: Yes (sober 10yrs) Hx Substance Use: Yes (SMOKES MARIJUANA NIGHTLY "IT HELPS ME SLEEP") Substance used: heroin Hx Substance Use Treatment: No Allergies/Home Meds Allergies/Adverse Reactions: Allergies No Known Allergies Allergy (Verified 05/24/18 02:31) Home Medications: Home Meds Medication Instructions Recorded Confirmed ARIPiprazole [Abilify] 5 mg PO DAILY 12/09/14 05/26/18 Dexlansoprazole [Dexilant] 60 mg PO DAILY 09/24/17 05/26/18 Divalproex [Depakote ER] 500 mg PO HS 09/24/17 05/26/18 RX: traZODone [Desyrel] 100 mg PO HS 09/24/17 05/26/18 diaZEpam [Valium] 5 mg PO TID 09/24/17 05/26/18 Cholecalciferol (Vitamin D3) 50,000 unit PO MON 10/01/17 05/26/18 [Vitamin D3] Review of Systems - Physician Review All systems were reviewed & negative as marked: Yes - Review of Systems Constitutional: absent: Fevers, Night Sweats Respiratory: absent: SOB Cardiovascular: absent: Chest Pain Gastrointestinal: absent: Abdominal Pain, Diarrhea, Nausea, Vomiting Neurological: absent: Headache, Dizziness Psychiatric: Anxiety. absent: Suicidal Ideation (and no homicidal ideation) Physical Exam Vital Signs Reviewed: Yes Vital Signs Temp Pulse Resp BP Pulse Ox 05/23/18 09:17 98.2 F 72 19 113/77 100 Temperature: Afebrile Blood Pressure: Normal Pulse: Regular Respiratory Rate: Normal Appearance: Positive for: Well-Appearing, Non-Toxic, Comfortable Pain Distress: None Mental Status: Positive for: Alert and Oriented X 3, Agitated - Systems Exam Head: Present: Atraumatic, Normocephalic Pupils: Present: PERRL Extroacular Muscles: Present: EOMI Conjunctiva: Present: Normal Mouth: Present: Moist Mucous Membranes Neck: Present: Normal Range of Motion Respiratory/Chest: Present: Clear to Auscultation, Good Air Exchange. No: Respiratory Distress, Accessory Muscle Use Cardiovascular: Present: Regular Rate and Rhythm, Normal S1, S2. No: Murmurs Abdomen: No: Tenderness, Distention, Peritoneal Signs Back: Present: Normal Inspection Upper Extremity: Present: Normal Inspection. No: Cyanosis, Edema Lower Extremity: Present: Normal Inspection. No: Edema Neurological: Present: GCS=15, CN II-XII Intact, Speech Normal Skin: Present: Warm, Dry, Normal Color. No: Rashes Psychiatric: Present: Alert, Oriented x 3, Normal Insight, Normal Concentration, Anxious, Agitated. No: Suicidal Ideation, Homicidal Ideation Medical Decision Making ED Course and Treatment: 05/23/18 10:16 Impression: 48 year old female with anxiety. No acute findings on physical examinations except patient is anxious, and somewhat agitated (as per patient). Plan: -- Chest X-ray -- Labs -- Urinalysis -- POC Urine Test -- Reassess and disposition Prior Visits: Notes and results from previous visits were reviewed. Patient was last seen in the emergency department on 05/15/2018 for abdominal pain, fever, chills, nausea, and vomiting. Patient was discharged home. Progress Notes: 05/23/18 11:59 Labs reviewed with UDS positive for cannabinoids. Patient is otherwise medically cleared. PES electrocardiograph repairer called at 10:15. Awaiting evaluation. 05/23/18 15:30 Patient evaluated by PES electrocardiograph repairer and signs consent for voluntary admission. Patient is stable for transfer to the floor. - Lab Interpretations Lab Results: 05/23/18 09:30 05/23/18 09:30 Lab Results 05/23/18 09:30: Free T4 Pending, TSH 3rd Generation Pending, Alcohol, Quantitative < 10 05/23/18 09:30: Urine Opiates Screen Negative, Urine Methadone Screen Negative, Ur Barbiturates Screen Negative, Ur Phencyclidine Scrn Negative, Ur Amphetamines Screen Negative, U Benzodiazepines Scrn Negative, U Oth Cocaine Metabols Positive H, U Cannabinoids Screen Positive H 05/23/18 09:30: Sodium 139, Potassium 3.8, Chloride 105, Carbon Dioxide 27, Anion Gap 11, BUN 18, Creatinine 0.8, Est GFR ( Amer) > 60, Est GFR (Non- Af Amer) > 60, Random Glucose 72, Calcium 9.7, Magnesium 2.1, Total Bilirubin 0.3, AST 31, ALT 43, Alkaline Phosphatase 85, Total Protein 7.8, Albumin 4.3, Globulin 3.5, Albumin/Globulin Ratio 1.2 05/23/18 09:30: Urine Color Yellow, Urine Appearance Clear, Urine pH 6.5, Ur Specific [place] 1.025, Urine Protein Negative, Urine Glucose (UA) Negative, Urine Ketones Negative, Urine Blood Trace-lysed H, Urine Nitrate Negative, Urine Bilirubin Negative, Urine Urobilinogen 0.2, Ur Leukocyte Esterase Negative, Urine RBC Pending, Urine WBC Pending 05/23/18 09:30: WBC 8.1, RBC 4.22, Hgb 13.5, Hct 40.3, MCV 95.5, MCH 32.0, MCHC 33.5, RDW 12.9, Plt Count 207, MPV 10.2, Gran % 56.8, Lymph % (Auto) 34.2, [place] % (Auto) 5.9, Eos % (Auto) 2.6, Baso % (Auto) 0.5, Gran # 4.60, Lymph # (Auto) 2.8, [place] # (Auto) 0.5, Eos # (Auto) 0.2, Baso # (Auto) 0.04 I have reviewed the lab results: Yes - RAD Interpretation Narrative RAD Interpretations (Text): 05/23/2018 10:24 Chest X-ray IMPRESSION: No active disease. Dictator: Jay Jay Jaime MD Radiology Orders: 05/23/18 09:21 CHEST PORTABLE [RAD] Stat - PA / MARKETING SALES SUPERVISOR / Resident Statement MD/DO has reviewed & agrees with the documentation as recorded. - Scribe Statement The provider has reviewed the documentation as recorded by the Eliana Fritz Provider Scribe Attestation: All medical record entries made by the Rosalbaibsiena were at my direction and personally dictated by me. I have reviewed the chart and agree that the record accurately reflects my personal performance of the history, physical exam, medical decision making, and the department course for this patient. I have also personally directed, reviewed, and agree with the discharge instructions and disposition. Disposition/Present on Arrival - Present on Arrival Any Indicators Present on Arrival: No History of DVT/PE: No History of Uncontrolled Diabetes: No Urinary Catheter: No History of Decub. Ulcer: No History Surgical Site Infection Following: None - Disposition Have Diagnosis and Disposition been Completed?: Yes Diagnosis: Depression, Bipolar affective, manic, unspec Disposition: HOSPITALIZED Disposition Time: 15:30 Patient Plan: Admission Condition: GOOD
[2018-05-23 10:22] LABS: FREE T4 1.07 ng/dL (0.78-2.19)
[2018-05-23 10:26] LABS: ACETAMINOPHEN < 10.0 ug/ml (10.0-20.0); SALICYLATE < 1 mg/dL (2.0-20.0)
--- NOTE | 2018-05-23 10:28 | RAD ---
Date of service: 05/23/2018 HISTORY: Psych clearance COMPARISON: No prior. FINDINGS: LUNGS: No active pulmonary disease. PLEURA: No significant pleural effusion identified, no pneumothorax apparent. CARDIOVASCULAR: No aortic atherosclerotic calcification present. Normal cardiac size. No pulmonary vascular congestion. OSSEOUS STRUCTURES: No significant abnormalities. VISUALIZED UPPER ABDOMEN: Normal. OTHER FINDINGS: None. IMPRESSION: No active disease.
[2018-05-23 10:34] LABS: URINE WBC 0 - 2 /hpf (0-6)
[2018-05-23 10:35] LABS: URINE AMORPHOUS SEDIMENT FEW; URINE BACTERIA TRACE (NEG)
[2018-05-23 11:56] VITALS: O2SAT 99
[2018-05-23] MEDS ORDERED: Alum-Mag Hydrox-Simethicone Susp (30 mL) PO PRN (15:45)
[2018-05-23] MEDS ORDERED: Magnesium Hydroxide Susp 30 ml UD PO PRN (15:46)
[2018-05-23 16:06] LABS: HDL CHOLESTEROL 90 mg/dL (29-60)
--- NOTE | 2018-05-23 16:14 | CARD ---
APPROVED REPORT Date of service: 05/23/2018 EKG Measurement Heart [id number] <Conclusion> Normal sinus rhythm with sinus arrhythmia Normal ECG
[2018-05-23 16:17] LABS: LDL CHOLESTEROL 61 mg/dL (0-129)
[2018-05-23] MEDS: Divalproex 250 mg DR (BID formulation) PO SCH (21:26)
--- NOTE | 2018-05-24 02:41 | PCM.BM ---
<Bridger Adams - Last Filed: 05/24/18 02:38> Treatment Plan Problems - Problems identified on initial assessmt Anxiety Date Initiated: 05/23/18 Time Initiated: 17:00 Assessment reference: NA Status: Active Priority: 1 Altered Sleep Patterns Date Initiated: 05/23/18 Time Initiated: 17:00 Assessment reference: NA Status: Active Priority: 2 Panic Attacks Date Initiated: 05/23/18 Time Initiated: 17:00 Assessment reference: NA Status: Active Priority: 3 Ineffective Breathing Pattern Date Initiated: 05/23/18 Time Initiated: 17:00 Assessment reference: NA Status: Active Priority: 4 Agitated/Aggressive Behavior Date Initiated: 05/23/18 Time Initiated: 17:00 Assessment reference: NA Status: Active Priority: 5 High Risk: Injury Date Initiated: 05/23/18 Time Initiated: 17:00 Assessment reference: NA Status: Active Priority: 6 Altered Thought Process Date Initiated: 05/23/18 Time Initiated: 17:00 Assessment reference: NA Status: Active Priority: 7 Ineffective Impulse Control Date Initiated: 05/23/18 Time Initiated: 17:00 Assessment reference: NA Status: Active Priority: 8 Medication nonadherence Date Initiated: 05/23/18 Time Initiated: 17:00 Assessment reference: NA Status: Active Priority: 9 Fear Date Initiated: 05/23/18 Time Initiated: 17:00 Assessment reference: NA Status: Active Priority: 10 Treatment assets and liabiliti Patient Assests: negotiates basic needs, cognitively intact Patient Liabilities: substance abuse - Milieu Protocol Maintain good personal hygiene: daily Encourage regular showers, every shift Remind patient to perform daily oral care, every shift Assist patient to perform ADL's Maintain personal safety: every shift Educate patient to report safety concerns to staff, every shift Monitor environment for contraband/sharps Medication safety: Monitor for expected outcome, potential side effects: every shift, Assess barriers to learning: every shift, Assess readiness for medication education: every shift Family Contact Family involvement: Family/SO is involved Family contact: Patient agrees to contact Discharge/Continuing Care - Education Needs Education Needs: Patient Medication, Patient Diagnosis/Disease Process, Patient Coping Skills, Patient Anger Management skills, Patient Placement options, Patient Community resources, Patient Activities of Daily Living, Patient Pain, Patient Nutrition, Patient Uses of Medical Equipment, Patient Health Practices/Safety, Patient Personal Hygiene/Grooming, Patient Aftercare Safety Plan - Discharge Discharge Criteria: Tolerates medication w/o severe side effects <Perlita Issa - Last Filed: 05/24/18 09:00> - Diagnosis (1) Bipolar affective, manic, unspec Status: Acute Interventions: 05/24/18 09:01 Psychoeducation Psychopharmacology/adjustment of medications as needed/ monitoring possible side effects Monitor blood level of mood stabilizers Evaluate pt on daily basis Compliance with medications and follow up appointments Suicide and homicide risk assessment and prevention, coping strategies, safety plan Relapse prevention Reduction of symptoms Improve functional status Family involvement As outpatient: cognitive behavioral therapy (2) Polysubstance abuse Status: Acute Interventions: 05/24/18 09:01 Monitoring withdrawal symptoms Medical detoxification Pharmacotherapy for alcohol/benzos/opioid dependence Maintaining sobriety Relapse prevention Possible rehabilitation Motivational interviewing 12-step programs: AA meetings <Brittany Chen Y - Last Filed: 05/25/18 08:37> Family Contact Family involvement: Family/SO is involved Family contact: Patient agrees to contact - Goals for Treatment Patient goals for treatment: "I'm manic now...I don't want to become depressed."
[2018-05-24 07:26] LABS: BASO # 0.05 K/mm3 (0.0-2.0); BASO % 0.6 % (0.0-3.0); EOS # 0.3 (0.0-0.7); GRAN # 4.83 (1.4-6.5); GRAN % 55.9 % (50.0-68.0); HEMOGLOBIN 15.3 g/dL (12.0-16.0); LYMPH # 3.1 (1.2-3.4); LYMPH % 35.6 % (22.0-35.0); MEAN CELL VOLUME 94.8 fl (80.0-105.0); MEAN CORPUSCULAR HEMOGLOBIN 31.9 pg (25.0-35.0); MEAN CORPUSCULAR HGB CONC 33.6 g/dl (31.0-37.0); MEAN PLATELET VOLUME 10.2 fl (7.0-11.0); MONO # 0.4 (0.1-0.6); MONO % 4.9 % (1.0-6.0); RBC 4.8 10^6/uL (3.5-6.1); RED CELL DISTRIBUTION WIDTH 12.9 % (11.5-14.5); WHITE BLOOD COUNT 8.6 10^3/uL (4.5-11.0)
[2018-05-24 07:38] LABS: ALB/GLOB RATIO 1.2 (1.1-1.8); ALBUMIN 4.7 g/dL (3.0-4.8); ALT/SGPT 46 U/L (7-56); AST/SGOT 36 U/L (14-36); BLOOD UREA NITROGEN 16 mg/dL (7-21); GFR NON-AFRICAN AMERICAN > 60; HDL CHOLESTEROL 110 mg/dL (29-60)
[2018-05-24 07:49] LABS: LDL CHOLESTEROL 68 mg/dL (0-129)
[2018-05-24 07:54] LABS: FREE T4 1.25 ng/dL (0.78-2.19)
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
[2018-05-24] MEDS: Divalproex 250 mg DR (BID formulation) PO SCH (21:10)
[2018-05-25 07:22] LABS: IRON 140 ug/dL (45-180)
[2018-05-25 07:31] LABS: % IRON SATURATION 49 % (20-55); TOTAL IRON BINDING CAPACITY 286 ug/dL (265-497)
--- NOTE | 2018-05-25 11:00 | CON ---
DATE: 05/25/2018 CHIEF COMPLAINT: Psych evaluation, peptic ulcer disease. HISTORY OF PRESENT ILLNESS: Ms. Daniel Kapoor is a 48-year-old, my private patient, with past medical history of substance abuse, bipolar, history of peptic ulcer disease, thyroid problem came to the emergency room in manic stage. The patient reports that she has been unable to sleep for the past 5 days, has been experiencing anxiety, triggered from daughter's anniversary. States that she is currently not experiencing depression, but explains that she feels it coming along as well as negative thoughts. The patient states that she called her psychiatrist who did not answer her, so she came in my office. I then instructed her to go to emergency room for evaluation. Currently, the patient is taking Abilify, Valium. The patient denies suicidal or homicidal ideation and complaining of epigastric pain. PAST MEDICAL HISTORY: Bipolar. Smokes marijuana nightly, it helps to sleep, thyroid problem. FAMILY HISTORY: Father and mother, noncontributory. HABITS: Smoking less than 10 cigarettes. Alcohol, sober 10 years. SUBSTANCE ABUSE: Smokes marijuana nightly. It helps to sleep. Other substances is the heroin. ALLERGIES: THE PATIENT IS NOT ALLERGIC WITH ANY MEDICATION. HOME MEDICATIONS: Abilify, DEXILANT, Valium, Depakote, vitamin D. REVIEW OF SYSTEMS: The patient was seen and examined at the bedside on 05/24/2018, looking comfortable. No nausea, vomiting, or diarrhea. Denied hematuria or hematochezia. No swelling of the legs. No chest pain. No palpitation. No headache. No dizziness. No shortness of breath. PHYSICAL EXAMINATION VITAL SIGNS: Temperature 97.5, pulse 82, blood pressure 138/77, respiratory rate 20. HEENT: Head, normocephalic, atraumatic. Eyes, PERRLA. Extraocular muscles intact. Conjunctivae clear. Nose patent. NECK: Supple. No carotid bruit. No thyromegaly. CHEST: Bilaterally symmetrical. HEART: S1 and S2 positive. LUNGS: Clear to auscultation. ABDOMEN: Soft. Bowel sounds present. No organomegaly. EXTREMITIES: No edema. No cyanosis. NEUROLOGIC: The patient is awake, alert. Moving all four extremities. No focal deficit. LABORATORY DATA: White blood cell 8.6, hemoglobin 15.3, hematocrit 45.4, platelets noted . Sodium 137, potassium 4.82, BUN 15, creatinine 0.7, glucose 91. ASSESSMENT AND PLAN: Ms. Daniel Kapoor is a 48 years old female with hematuria. Drug screening positive for cocaine, cannabinoid, RPR is negative. History of peptic ulcer disease, taking Nexium. Insomnia, schizomania and was manic, cannot sleep. She had other multiple medical admissions due to hallucination, and the patient has history of thyroid problem. Discussion done with nursing staff. The patient is under psychiatrist care. Gastrointestinal and deep vein thrombosis prophylaxis. Repeat labs. We will follow. Debra Galeano MD MTDD
[2018-05-25 13:17] LABS: FOLATE 9.7 ng/mL
--- NOTE | 2018-05-25 15:16 | PCM.PYCHPN ---
Psychiatric Progress Note - Psychiatric Progress Note Patient seen today, length of contact: 30 minutes Patient Chief Complaint: I'm little bit better, but was not able to sleep' Problems Identified/Issues Discussed: Suicide/ homicide prevention, past psychiatric h/o, current psychiatric symptoms, medical problems, risk/benefits and alternatives of medications, medications compliance, coping strategies, substance abuse h/o, relapse prevention, importance of follow up with psychiatrist and therapist, discharge plan. Medical Problems: peptic ulcer disease Diagnostic Results: 05/24/18 07:15 05/24/18 07:15 Lab Results 05/25/18 06:45: Hemoglobin A1c 5.4 05/25/18 06:45: Iron 140, TIBC 286, % Saturation 49 05/25/18 06:45: Triglycerides 98, Cholesterol 171, LDL Cholesterol Direct 65, HDL Cholesterol 93 H, Vitamin B12 662, Folate 9.7 05/24/18 07:15: RPR Nonreactive 05/24/18 07:15: Free T4 1.25, TSH 3rd Generation 1.41 05/24/18 07:15: Hemoglobin A1c 5.5 05/24/18 07:15: Sodium 137, Potassium 4.2, Chloride 102, Carbon Dioxide 26, Anion Gap 14, BUN 16, Creatinine 0.7, Est GFR ( Amer) > 60, Est GFR (Non- Af Amer) > 60, Random Glucose 91, Calcium 10.0, Total Bilirubin 0.7, AST 36, ALT 46, Alkaline Phosphatase 89, Total Protein 8.9 H, Albumin 4.7, Globulin 4.1, Albumin/Globulin Ratio 1.2, Triglycerides 67, Cholesterol 185, LDL Cholesterol Direct 68, HDL Cholesterol 110 H 05/24/18 07:15: WBC 8.6, RBC 4.80, Hgb 15.3, Hct 45.5, MCV 94.8, MCH 31.9, MCHC 33.6, RDW 12.9, Plt Count 222, MPV 10.2, Gran % 55.9, Lymph % (Auto) 35.6 H, [place] % (Auto) 4.9, Eos % (Auto) 3.0, Baso % (Auto) 0.6, Gran # 4.83, Lymph # (Auto) 3.1, [place] # (Auto) 0.4, Eos # (Auto) 0.3, Baso # (Auto) 0.05 05/23/18 09:30: Hemoglobin A1c 5.4 05/23/18 09:30: Triglycerides 95, Cholesterol 168, LDL Cholesterol Direct 61, HD L Cholesterol 90 H 05/23/18 09:30: Free T4 1.07, TSH 3rd Generation 0.85, Alcohol, Quantitative < 10 05/23/18 09:30: Salicylates < 1 L, Acetaminophen < 10.0 L 05/23/18 09:30: Urine Opiates Screen Negative, Urine Methadone Screen Negative, Ur Barbiturates Screen Negative, Ur Phencyclidine Scrn Negative, Ur Amphetamines Screen Negative, U Benzodiazepines Scrn Negative, U Oth Cocaine Metabols Positive H, U Cannabinoids Screen Positive H 05/23/18 09:30: Sodium 139, Potassium 3.8, Chloride 105, Carbon Dioxide 27, Anion Gap 11, BUN 18, Creatinine 0.8, Est GFR ( Amer) > 60, Est GFR (Non- Af Amer) > 60, Random Glucose 72, Calcium 9.7, Magnesium 2.1, Total Bilirubin 0.3, AST 31, ALT 43, Alkaline Phosphatase 85, Total Protein 7.8, Albumin 4.3, Globulin 3.5, Albumin/Globulin Ratio 1.2 05/23/18 09:30: Urine Color Yellow, Urine Appearance Clear, Urine pH 6.5, Ur Specific [place] 1.025, Urine Protein Negative, Urine Glucose (UA) Negative, Urine Ketones Negative, Urine Blood Trace-lysed H, Urine Nitrate Negative, Urine Bilirubin Negative, Urine Urobilinogen 0.2, Ur Leukocyte Esterase Negative, Urine RBC 2 - 5, Urine WBC 0 - 2, Ur Epithelial Cells 4 - 5, Amorphous Sediment Few, Urine Bacteria Trace 05/23/18 09:30: WBC 8.1, RBC 4.22, Hgb 13.5, Hct 40.3, MCV 95.5, MCH 32.0, MCHC 33.5, RDW 12.9, Plt Count 207, MPV 10.2, Gran % 56.8, Lymph % (Auto) 34.2, [place] % (Auto) 5.9, Eos % (Auto) 2.6, Baso % (Auto) 0.5, Gran # 4.60, Lymph # (Auto) 2.8, [place] # (Auto) 0.5, Eos # (Auto) 0.2, Baso # (Auto) 0.04 Vital Signs Temp Pulse Resp BP Pulse Ox 05/25/18 07:00 116 H 19 145/100 H 05/24/18 16:00 82 138/107 H 05/24/18 07:18 97.5 F L 75 20 153/95 H 05/23/18 16:22 20 05/23/18 15:45 98.8 F 68 18 139/90 05/23/18 14:56 98.3 F 75 19 129/53 L 99 05/23/18 11:54 98 F 75 19 126/53 L 99 05/23/18 09:17 98.2 F 72 19 113/77 100 DSM 5 Symptoms Update: shortly, patient is a 48 year old female, self reported history of bipolar disorder, multiple suicidal attempts in the past, whose past medical history includes substance abuse, and peptic ulcer disease, patient brought herself to the hospital for evaluation of "manic" episode, uncontrollable anxiety, inability to sleep, possible psychosis which triggered from daughter's anniversary. Patient reported that she called her outpatient psychiatrist at [facility] but "he did not answer" patient was not weight any longer, asked her boyfriend to bring her to the hospital because of anxiety, possible suicidal ideation. patient needs further evaluation and stabilization, observation, medication titration. patient was seen and examined today at the treatment team meeting room with medical students. personal hygiene improving. pt said that she feels "little better, but I did not sleep at all". pt is willing to try ambien hs. pt still reported to feel irritable/mind racing, anxious and depressed. pt is pleasant, started to attend groups. psychotic symptoms are improving. so far pt tolerates meds well, no side effects observed or reported, AIMS 0. no EPS. DSM 5 Diagnosis: bipolar disorder type I, most recent episode mixed, severe, with psychosis cannabis abuse Stimulants abuse Medication Change: Yes (some of the discontinued, Ambien was started) Medical Record Reviewed: Yes Consults ordered or reviewed: medical consult appreciated please see notes for more detailed information, discussed with Dr. Galeano 05/25/2018 Mental Status Examination - Cognitive Function Orientation: Person, Place, Situation, Time Memory: Intact Attention: Poor Concentration: Poor Association: WNL Fund of Knowledge: WNL - Mood Mood: Depressed, Anxious, Other (irritable) - Affect Affect: Flat - Formal Thought Process Formal Thought Process: No Impairment - Suicidal Ideation Suicidal Ideation: No - Homicidal Ideation Homicidal Ideation: No Goal/Treatment Plan - Goal/Treatment Plan Need for Continued Stay: Remain at risks for inpatient hospitalization, Severe depression anxiety, Discharge may exacerbated symptoms, Severe functional impairment Progress Toward Problem(s) and Goals/Treatment Plan: Milieu/structure/supportive therapy Medical consult will be called SW consultation for discharge plan and social issues valium continued Abilify was increased to 5 mg twice a day Sonata d/c today Effexor for depression and anxiety 75 mg daily ambien mg po hs for insomnia Family involvement Follow up on labs Will monitor closely Pt was educated about risk/benefits and alternatives of medications, coping strategies (safety plan, suicide prevention), relapse prevention, importance of follow up with psychiatrist and therapist, stay away from drugs/alcohol/smoking Estimated Date of D/C: 05/28/18
[2018-05-25] MEDS: Divalproex 250 mg DR (BID formulation) PO SCH (21:07)
--- NOTE | 2018-05-26 04:46 | PN ---
DATE: 05/25/2018 SUBJECTIVE: The patient was seen and examined at the bedside, and looking comfortable. No, hematuria, hematochezia. No swelling of the legs. No chest pain. No palpitations. No headache or dizziness. Anxiety is better. PHYSICAL EXAMINATION: VITAL SIGNS: Temperature 97.5, pulse 90, blood pressure 133/95, respiratory rate 19. HEENT: Head is normocephalic and atraumatic. Eyes; PERRLA. Extraocular muscles are intact. Conjunctivae clear. Nose patent. Mucous membranes moist. NECK: Supple. No carotid bruits, JVD or thyromegaly. CHEST: Bilaterally symmetrical. HEART: S1 and S2 positive. LUNGS: Clear to auscultation. ABDOMEN: Soft. Bowel sounds present. No organomegaly. EXTREMITIES: No edema. No cyanosis. NEUROLOGIC: The patient is awake and alert, moving all four extremities. No focal deficits. MEDICATIONS: Abilify, Ambien, Ativan, Depakote, Effexor, Maalox, Milk of Magnesia, nicotine, Tylenol, and Valium. LABORATORY DATA: White blood cell 8.6, hemoglobin 15.3, hematocrit 45.5, platelets 222,000. Sodium 137, potassium 4.2, BUN 15, creatinine 0.7. Hemoglobin A1c is 5.4. ASSESSMENT AND PLAN: Ms. Emelia Sanchez is a 48-year-old lady with high protein, hematuria, cocaine positive and cannabinoid positive in the system. RPR negative. History of thyroid problem, gastroesophageal reflux disease, dyspepsia, peptic ulcer disease, history of bipolar, substance abuse. Actually, the patient lost her daughter and in few days she has anniversary of her daughter's that is why she is getting more upset; otherwise, history of bipolar disorder type 1, stimulant medicines. Gastrointestinal and deep vein thrombosis prophylaxes. Repeat labs. Appreciate psychiatrist input. We will follow. Debra Galeano MD
[2018-05-26 07:31] LABS: HEMOGLOBIN 16.9 g/dL (12.0-16.0); MEAN CELL VOLUME 94.5 fl (80.0-105.0); MEAN CORPUSCULAR HEMOGLOBIN 32.3 pg (25.0-35.0); MEAN CORPUSCULAR HGB CONC 34.1 g/dl (31.0-37.0); MEAN PLATELET VOLUME 10.1 fl (7.0-11.0); RBC 5.24 10^6/uL (3.5-6.1); RED CELL DISTRIBUTION WIDTH 12.9 % (11.5-14.5); WHITE BLOOD COUNT 10.5 10^3/uL (4.5-11.0)
[2018-05-26 07:36] LABS: BLOOD UREA NITROGEN 22 mg/dL (7-21); CALCIUM 10.3 mg/dL (8.4-10.5); GFR NON-AFRICAN AMERICAN > 60
--- NOTE | 2018-05-26 16:54 | PCM.PYCHPN ---
Psychiatric Progress Note - Psychiatric Progress Note Patient seen today, length of contact: 30 minutes Patient Chief Complaint: I'm little bit better, i slept for 3 hours, I am just afraid to be suicidal...." Problems Identified/Issues Discussed: Suicide/ homicide prevention, past psychiatric h/o, current psychiatric symptoms, medical problems, risk/benefits and alternatives of medications, medications compliance, coping strategies, substance abuse h/o, relapse prevent ion, importance of follow up with psychiatrist and therapist, discharge plan. Medical Problems: peptic ulcer disease Diagnostic Results: 05/24/18 07:15 05/24/18 07:15 Lab Results 05/25/18 06:45: Hemoglobin A1c 5.4 05/25/18 06:45: Iron 140, TIBC 286, % Saturation 49 05/25/18 06:45: Triglycerides 98, Cholesterol 171, LDL Cholesterol Direct 65, HDL Cholesterol 93 H, Vitamin B12 662, Folate 9.7 05/24/18 07:15: RPR Nonreactive 05/24/18 07:15: Free T4 1.25, TSH 3rd Generation 1.41 05/24/18 07:15: Hemoglobin A1c 5.5 05/24/18 07:15: Sodium 137, Potassium 4.2, Chloride 102, Carbon Dioxide 26, Anion Gap 14, BUN 16, Creatinine 0.7, Est GFR ( Amer) > 60, Est GFR (Non- Af Amer) > 60, Random Glucose 91, Calcium 10.0, Total Bilirubin 0.7, AST 36, ALT 46, Alkaline Phosphatase 89, Total Protein 8.9 H, Albumin 4.7, Globulin 4.1, Albumin/Globulin Ratio 1.2, Triglycerides 67, Cholesterol 185, LDL Cholesterol Direct 68, HDL Cholesterol 110 H 05/24/18 07:15: WBC 8.6, RBC 4.80, Hgb 15.3, Hct 45.5, MCV 94.8, MCH 31.9, MCHC 33.6, RDW 12.9, Plt Count 222, MPV 10.2, Gran % 55.9, Lymph % (Auto) 35.6 H, [place] % (Auto) 4.9, Eos % (Auto) 3.0, Baso % (Auto) 0.6, Gran # 4.83, Lymph # (Auto) 3.1, [place] # (Auto) 0.4, Eos # (Auto) 0.3, Baso # (Auto) 0.05 05/23/18 09:30: Hemoglobin A1c 5.4 05/23/18 09:30: Triglycerides 95, Cholesterol 168, LDL Cholesterol Direct 61, HDL Cholesterol 90 H 05/23/18 09:30: Free T4 1.07, TSH 3rd Generation 0.85, Alcohol, Quantitative < 10 05/23/18 09:30: Salicylates < 1 L, Acetaminophen < 10.0 L 05/23/18 09:30: Urine Opiates Screen Negative, Urine Methadone Screen Negative, Ur Barbiturates Screen Negative, Ur Phencyclidine Scrn Negative, Ur Amphetamines Screen Negative, U Benzodiazepines Scrn Negative, U Oth Cocaine Metabols P ositive H, U Cannabinoids Screen Positive H 05/23/18 09:30: Sodium 139, Potassium 3.8, Chloride 105, Carbon Dioxide 27, Anion Gap 11, BUN 18, Creatinine 0.8, Est GFR ( Amer) > 60, Est GFR (Non- Af Amer) > 60, Random Glucose 72, Calcium 9.7, Magnesium 2.1, Total Bilirubin 0.3, AST 31, ALT 43, Alkaline Phosphatase 85, Total Protein 7.8, Albumin 4.3, Globulin 3.5, Albumin/Globulin Ratio 1.2 05/23/18 09:30: Urine Color Yellow, Urine Appearance Clear, Urine pH 6.5, Ur Specific [place] 1.025, Urine Protein Negative, Urine Glucose (UA) Negative, Urine Ketones Negative, Urine Blood Trace-lysed H, Urine Nitrate Negative, Urine Bilirubin Negative, Urine Urobilinogen 0.2, Ur Leukocyte Esterase Negative, Urine RBC 2 - 5, Urine WBC 0 - 2, Ur Epithelial Cells 4 - 5, Amorphous Sediment Few, Urine Bacteria Trace 05/23/18 09:30: WBC 8.1, RBC 4.22, Hgb 13.5, Hct 40.3, MCV 95.5, MCH 32.0, MCHC 33.5, RDW 12.9, Plt Count 207, MPV 10.2, Gran % 56.8, Lymph % (Auto) 34.2, [place] % (Auto) 5.9, Eos % (Auto) 2.6, Baso % (Auto) 0.5, Gran # 4.60, Lymph # (Auto) 2.8, [place] # (Auto) 0.5, Eos # (Auto) 0.2, Baso # (Auto) 0.04 Vital Signs Temp Pulse Resp BP Pulse Ox 05/25/18 07:00 116 H 19 145/100 H 05/24/18 16:00 82 138/107 H 05/24/18 07:18 97.5 F L 75 20 153/95 H 05/23/18 16:22 20 05/23/18 15:45 98.8 F 68 18 139/90 05/23/18 14:56 98.3 F 75 19 129/53 L 99 05/23/18 11:54 98 F 75 19 126/53 L 99 05/23/18 09:17 98.2 F 72 19 113/77 100 DSM 5 Symptoms Update: shortly, patient is a 48 year old female, self reported history of bipolar disorder, multiple suicidal attempts in the past, whose past medical history includes substance abuse, and peptic ulcer disease, patient brought herself to the hospital for evaluation of "manic" episode, uncontrollable anxiety, inability to sleep, possible psychosis which triggered from daughter's anniversary. Patient reported that she called her outpatient psychiatrist at [facility] but "he did not answer" patient was not weight any longer, asked her boyfriend to bring her to the hospital because of anxiety, possible suicidal ideation. patient needs further evaluation and stabilization, observation, medication titration. patient was seen and examined today at the day treatment area, personal hygiene improving, ppatient complained of insomnia, patient reported that she feels "hyper", patient has good insight into her mental illness, patient expressed her concerns "after manic episodes I am usually suicidal, I do want to be suicidal, that's why I am here" pt still reported to feel irritable/mind racing, anxious and depressed. pt is pleasant, trying her best to attend groups. psychotic symptoms are improving. so far pt tolerates meds well, no side effects observed or reported, AIMS 0. no EPS. DSM 5 Diagnosis: bipolar disorder type I, most recent episode mixed, severe, with psychosis cannabis abuse Stimulants abuse Medication Change: Yes (Ambien increased) Medical Record Reviewed: Yes Mental Status Examination - Cognitive Function Orientation: Person, Place, Situation, Time Memory: Intact Attention: Poor Concentration: Poor Association: WNL Fund of Knowledge: WNL - Mood Mood: Depressed, Anxious, Other (irritable) - Affect Affect: Flat - Formal Thought Process Formal Thought Process: No Impairment - Suicidal Ideation Suicidal Ideation: No - Homicidal Ideation Homicidal Ideation: No Goal/Treatment Plan - Goal/Treatment Plan Need for Continued Stay: Remain at risks for inpatient hospitalization, Severe depression anxiety, Discharge may exacerbated symptoms, Severe functional impairment Progress Toward Problem(s) and Goals/Treatment Plan: Milieu/structure/supportive therapy Medical consult will be called SW consultation for discharge plan and social issues valium continued Abilify was increased to 5 mg twice a day Sonata d/c Effexor for depression and anxiety 75 mg daily sstarted May 25 ambien 10mg po hs for insomnia Family involvement Follow up on labs Will monitor closely Pt was educated about risk/benefits and alternatives of medications, coping strategies (safety plan, suicide prevention), relapse prevention, importance of follow up with psychiatrist and therapist, stay away from drugs/alcohol/smoking Estimated Date of D/C: 05/31/18
[2018-05-26] MEDS: Divalproex 250 mg DR (BID formulation) PO SCH (21:11)
--- NOTE | 2018-05-27 06:27 | PN ---
DATE: 05/26/2018 SUBJECTIVE: The patient is a 48-year-old female. The patient was seen and examined on the bedside on 05/26/2018, looking comfortable. No nausea, vomiting, diarrhea. No hematuria or hematochezia. No swelling of the legs. No chest pain. No palpitation. No change of status. PHYSICAL EXAMINATION: VITAL SIGNS: Temperature 97.4, pulse 100, blood pressure 125/92, pulse oximetry 20%. HEENT: Head is normocephalic, atraumatic. Eyes; PERRLA. Extraocular muscles intact. Conjunctivae clear. Nose is patent. NECK: Supple. No carotid bruit. No thyromegaly. CHEST: Bilaterally symmetrical. HEART: S1 and S2 positive. LUNGS: Clear to auscultation. ABDOMEN: Soft. No organomegaly. EXTREMITIES: No edema. No cyanosis. NEUROLOGIC: The patient is awake, alert. Follows simple commands. MEDICATIONS: Abilify, Ambien, Ativan, Effexor, Maalox, milk of magnesia, Nicoderm, Tylenol, Valium. LABORATORY DATA: White blood cell 10.5, hemoglobin 16.9, hematocrit 47.5, platelets 223,000. Sodium 137, potassium 4.3, BUN 22, creatinine 0.7, glucose 140, HDL 93. ASSESSMENT AND PLAN: Ms. Emelia Sanchez is a 48-year-old female with high hemoglobin, hematuria, cocaine and cannabinoid abuse. Rapid plasma reagin negative. History of thyroid problem, came with manic stage, history of peptic ulcer disease, adjusting proton pump inhibitor, history of insomnia; getting Ambien, and schizophrenia. Gastrointestinal and deep vein thrombosis prophylaxes. Repeat labs. We will follow up. Debra Galeano MD
--- NOTE | 2018-05-27 09:58 | PCM.PYCHPN ---
Psychiatric Progress Note - Psychiatric Progress Note Patient seen today, length of contact: 30 minutes Problems Identified/Issues Discussed: I reviewed assessment and recent notes. Patient was interviewed in the dayroom. She is groomed and well-oriented to month, year, location and circumstances. Her affect is bright and pleasant, speech is wnl. Patient reports that she is feeling "a lot better". Feels the medications are helping to calm her down. Anxiety is better and sleep has improved She estimates that she slept 6 hours last night. She denies any side effects or new discomfort or pain. She appears comfortable and appropriately social with other patients. Staff note that she has been bright, interactive with clear and connected thoughts. she can tolerate groups without any behavioral issues. Impulse control, insight and judgement are improving. Diagnostic Results: bipolar disorder type I, most recent episode mixed, severe, with psychosis cannabis abuse Stimulants abuse Medication Change: No ( ) Medical Record Reviewed: Yes Mental Status Examination - Cognitive Function Orientation: Person, Place, Situation, Time Memory: Intact Attention: WNL Concentration: Poor Association: WNL Fund of Knowledge: WNL - Mood Mood: Depressed (improved), Anxious (improved), Other (pleasant) - Affect Affect: Broad - Speech Speech: Appropriate - Formal Thought Process Formal Thought Process: No Impairment - Suicidal Ideation Suicidal Ideation: No - Homicidal Ideation Homicidal Ideation: No Goal/Treatment Plan - Goal/Treatment Plan Need for Continued Stay: Remain at risks for inpatient hospitalization, Severe depression anxiety, Discharge may exacerbated symptoms, Severe functional impairment Progress Toward Problem(s) and Goals/Treatment Plan: * c/w current tx and plan * No new lab results noted thus far today * Vitals reviewed and noted below: Selected Entries 05/26/18 05/26/18 07:11 16:00 Temperature 97.4 F L Pulse Rate 83 100 H Respiratory 20 Rate Blood Pressure 121/85 125/92 H Estimated Date of D/C: 05/31/18
[2018-05-27] MEDS: Divalproex 250 mg DR (BID formulation) PO SCH (21:04)
--- NOTE | 2018-05-28 08:35 | PN ---
DATE: 05/27/2018 SUBJECTIVE: The patient is 48 years old female, my private patient. The patient was seen and examined at bedside on 05/27/2018. Looking comfortable, who is actually better, last night had good sleep with Ambien, 7 hours as per patient. No fever. No chills. No headache. No dizziness. No chest pain or palpitations. No hematuria or hematochezia. PHYSICAL EXAMINATION VITAL SIGNS: Temperature 97.4, pulse 82, respiratory rate 20, blood pressure 120/85. HEENT: Head is normocephalic, atraumatic. Eyes PERRLA. Extraocular muscles are intact. Conjunctivae clear. Nose patent. NECK: Supple. No carotid bruits. No JVD or thyromegaly. CHEST: Bilaterally symmetrical. HEART: S1 and S2 positive. LUNGS: Clear to auscultation. ABDOMEN: Soft. Bowel sounds present. No organomegaly. EXTREMITIES: No edema, no cyanosis. NEUROLOGIC: The patient is awake, alert. Moving all four extremities. No focal deficits. LABORATORY DATA: White blood cell 10.5, hemoglobin noted , hematocrit 41.5, platelets 223,0000. MEDICATIONS: Abilify, Ambien, Ativan, Depakote, Effexor, Maalox, Milk of Magnesia, nicotine patch, Tylenol and Valium. ASSESSMENT AND PLAN: Ms. Daniel Kapoor is a 48-year-old lady with a high hemoglobin, maybe concentrated, increased BUN, hematuria. Drug screen positive for cocaine and cannabinoid, RPR nonreactive, history of peptic ulcer disease, getting treatment, feeling better, history of thyroid problems, nodular goiter. Patient has bipolar disorder type 1, most recent episode mixed, severe, with psychosis, cannabinoid abuse, stimulant abuse. Gastrointestinal and deep venous thrombosis prophylaxes, repeat labs, history of smoking, chronic obstructive pulmonary disease. Gastrointestinal and deep vein thrombosis prophylaxes. We will follow up. Appreciate the consult. Debra Galeano MD [facility]
[2018-05-28 10:29] VITALS: BP 112/63; PULSE 65; RESP 17; TEMP 97.2
--- NOTE | 2018-05-28 10:50 | PCM.PYCHDC ---
Mental Status Examination - Mental Status Examination Orientation: Person, Place, Situation Memory: Intact Mood: Neutral Affect: Broad Speech: Appropriate Attention: WNL Concentration: WNL Association: WNL Fund of Knowledge: WNL Formal Thought Process: No Impairment Description of patient's judgement and insight: Improved and good I/J Psychotic Thoughts and Behaviors: Patient denies perceptual disturbance including hallucinations or paranoia. Delusions were not elicited. Suicidal Ideation: No Current Homicidal Ideation?: No Discharge Summary - Discharge Note Reason for Hospitalization: Patient is a 48 year old female, self reported history of bipolar disorder, multiple suicidal attempts in the past, whose past medical history includes substance abuse, and peptic ulcer disease, patient brought herself to the hospital for evaluation of "manic" episode, uncontrollable anxiety, inability to sleep, possible psychosis which triggered from daughter's anniversary. Patient reported that she called her outpatient psychiatrist at [facility] but "he did not answer" patient was not weight any longer, asked her boyfriend to bring her to the hospital because of anxiety, possible suicidal ideation. patient needs further evaluation and stabilization, observation, medication titration. Psychiatric History (includes Medical, Family, Personal Hx): See HPI Laboratory Data: Laboratory Tests 05/23/18 05/23/18 05/23/18 09:30 09:30 09:30 WBC 8.1 RBC 4.22 Hgb 13.5 Hct 40.3 MCV 95.5 MCH 32.0 MCHC 33.5 RDW 12.9 Plt Count 207 MPV 10.2 Gran % 56.8 Lymph % (Auto) 34.2 [place] % (Auto) 5.9 Eos % (Auto) 2.6 Baso % (Auto) 0.5 Gran # 4.60 Lymph # (Auto) 2.8 [place] # (Auto) 0.5 Eos # (Auto) 0.2 Baso # (Auto) 0.04 Sodium 139 Potassium 3.8 Chloride 105 Carbon Dioxide 27 Anion Gap 11 BUN 18 Creatinine 0.8 Est GFR ( Amer) > 60 Est GFR (Non-Af Amer) > 60 Random Glucose 72 Hemoglobin A1c Calcium 9.7 Magnesium 2.1 Iron TIBC % Saturation Total Bilirubin 0.3 AST 31 ALT 43 Alkaline Phosphatase 85 Total Protein 7.8 Albumin 4.3 Globulin 3.5 Albumin/Globulin Ratio 1.2 Triglycerides Cholesterol LDL Cholesterol Direct HDL Cholesterol Vitamin B12 Folate Free T4 TSH 3rd Generation Urine Color Yellow Urine Appearance Clear Urine pH 6.5 Ur Specific [place] 1.025 Urine Protein Negative Urine Glucose (UA) Negative Urine Ketones Negative Urine Blood Trace-lysed H Urine Nitrate Negative Urine Bilirubin Negative Urine Urobilinogen 0.2 Ur Leukocyte Esterase Negative Urine RBC 2 - 5 Urine WBC 0 - 2 Ur Epithelial Cells 4 - 5 Amorphous Sediment Few Urine Bacteria Trace Salicylates Urine Opiates Screen Urine Methadone Screen Acetaminophen Ur Barbiturates Screen Ur Phencyclidine Scrn Ur Amphetamines Screen U Benzodiazepines Scrn U Oth Cocaine Metabols U Cannabinoids Screen Alcohol, Quantitative RPR 05/23/18 05/23/18 05/23/18 09:30 09:30 09:30 WBC RBC Hgb Hct MCV MCH MCHC RDW Plt Count MPV Gran % Lymph % (Auto) [place] % (Auto) Eos % (Auto) Baso % (Auto) Gran # Lymph # (Auto) [place] # (Auto) Eos # (Auto) Baso # (Auto) Sodium Potassium Chloride Carbon Dioxide Anion Gap BUN Creatinine Est GFR ( Amer) Est GFR (Non-Af Amer) Random Glucose Hemoglobin A1c Calcium Magnesium Iron TIBC % Saturation Total Bilirubin AST ALT Alkaline Phosphatase Total Protein Albumin Globulin Albumin/Globulin Ratio Triglycerides Cholesterol LDL Cholesterol Direct HDL Cholesterol Vitamin B12 Folate Free T4 1.07 TSH 3rd Generation 0.85 Urine Color Urine Appearance Urine pH Ur Specific [place] Urine Protein Urine Glucose (UA) Urine Ketones Urine Blood Urine Nitrate Urine Bilirubin Urine Urobilinogen Ur Leukocyte Esterase Urine RBC Urine WBC Ur Epithelial Cells Amorphous Sediment Urine Bacteria Salicylates < 1 L Urine Opiates Screen Negative Urine Methadone Screen Negative Acetaminophen < 10.0 L Ur Barbiturates Screen Negative Ur Phencyclidine Scrn Negative Ur Amphetamines Screen Negative U Benzodiazepines Scrn Negative U Oth Cocaine Metabols Positive H U Cannabinoids Screen Positive H Alcohol, Quantitative < 10 RPR 05/23/18 05/23/18 05/24/18 09:30 09:30 07:15 WBC 8.6 RBC 4.80 Hgb 15.3 Hct 45.5 MCV 94.8 MCH 31.9 MCHC 33.6 RDW 12.9 Plt Count 222 MPV 10.2 Gran % 55.9 Lymph % (Auto) 35.6 H [place] % (Auto) 4.9 Eos % (Auto) 3.0 Baso % (Auto) 0.6 Gran # 4.83 Lymph # (Auto) 3.1 [place] # (Auto) 0.4 Eos # (Auto) 0.3 Baso # (Auto) 0.05 Sodium Potassium Chloride Carbon Dioxide Anion Gap BUN Creatinine Est GFR ( Amer) Est GFR (Non-Af Amer) Random Glucose Hemoglobin A1c 5.4 Calcium Magnesium Iron TIBC % Saturation Total Bilirubin AST ALT Alkaline Phosphatase Total Protein Albumin Globulin Albumin/Globulin Ratio Triglycerides 95 Cholesterol 168 LDL Cholesterol Direct 61 HDL Cholesterol 90 H Vitamin B12 Folate Free T4 TSH 3rd Generation Urine Color Urine Appearance Urine pH Ur Specific [place] Urine Protein Urine Glucose (UA) Urine Ketones Urine Blood Urine Nitrate Urine Bilirubin Urine Urobilinogen Ur Leukocyte Esterase Urine RBC Urine WBC Ur Epithelial Cells Amorphous Sediment Urine Bacteria Salicylates Urine Opiates Screen Urine Methadone Screen Acetaminophen Ur Barbiturates Screen Ur Phencyclidine Scrn Ur Amphetamines Screen U Benzodiazepines Scrn U Oth Cocaine Metabols U Cannabinoids Screen Alcohol, Quantitative RPR 05/24/18 05/24/18 05/24/18 07:15 07:15 07:15 WBC RBC Hgb Hct MCV MCH MCHC RDW Plt Count MPV Gran % Lymph % (Auto) [place] % (Auto) Eos % (Auto) Baso % (Auto) Gran # Lymph # (Auto) [place] # (Auto) Eos # (Auto) Baso # (Auto) Sodium 137 Potassium 4.2 Chloride 102 Carbon Dioxide 26 Anion Gap 14 BUN 16 Creatinine 0.7 Est GFR ( Amer) > 60 Est GFR (Non-Af Amer) > 60 Random Glucose 91 Hemoglobin A1c 5.5 Calcium 10.0 Magnesium Iron TIBC % Saturation Total Bilirubin 0.7 AST 36 ALT 46 Alkaline Phosphatase 89 Total Protein 8.9 H Albumin 4.7 Globulin 4.1 Albumin/Globulin Ratio 1.2 Triglycerides 67 Cholesterol 185 LDL Cholesterol Direct 68 HDL Cholesterol 110 H Vitamin B12 Folate Free T4 1.25 TSH 3rd Generation 1.41 Urine Color Urine Appearance Urine pH Ur Specific [place] Urine Protein Urine Glucose (UA) Urine Ketones Urine Blood Urine Nitrate Urine Bilirubin Urine Urobilinogen Ur Leukocyte Esterase Urine RBC Urine WBC Ur Epithelial Cells Amorphous Sediment Urine Bacteria Salicylates Urine Opiates Screen Urine Methadone Screen Acetaminophen Ur Barbiturates Screen Ur Phencyclidine Scrn Ur Amphetamines Screen U Benzodiazepines Scrn U Oth Cocaine Metabols U Cannabinoids Screen Alcohol, Quantitative RPR 05/24/18 05/25/1818 07:15 06:45 06:45 WBC RBC Hgb Hct MCV MCH MCHC RDW Plt Count MPV Gran % Lymph % (Auto) [place] % (Auto) Eos % (Auto) Baso % (Auto) Gran # Lymph # (Auto) [place] # (Auto) Eos # (Auto) Baso # (Auto) Sodium Potassium Chloride Carbon Dioxide Anion Gap BUN Creatinine Est GFR ( Amer) Est GFR (Non-Af Amer) Random Glucose Hemoglobin A1c Calcium Magnesium Iron 140 TIBC 286 % Saturation 49 Total Bilirubin AST ALT Alkaline Phosphatase Total Protein Albumin Globulin Albumin/Globulin Ratio Triglycerides 98 Cholesterol 171 LDL Cholesterol Direct 65 HDL Cholesterol 93 H Vitamin B12 662 Folate 9.7 Free T4 TSH 3rd Generation Urine Color Urine Appearance Urine pH Ur Specific [place] Urine Protein Urine Glucose (UA) Urine Ketones Urine Blood Urine Nitrate Urine Bilirubin Urine Urobilinogen Ur Leukocyte Esterase Urine RBC Urine WBC Ur Epithelial Cells Amorphous Sediment Urine Bacteria Salicylates Urine Opiates Screen Urine Methadone Screen Acetaminophen Ur Barbiturates Screen Ur Phencyclidine Scrn Ur Amphetamines Screen U Benzodiazepines Scrn U Oth Cocaine Metabols U Cannabinoids Screen Alcohol, Quantitative RPR Nonreactive 05/25/18 05/26/18 05/26/18 06:45 07:10 07:10 WBC 10.5 D RBC 5.24 Hgb 16.9 H Hct 49.5 H MCV 94.5 MCH 32.3 MCHC 34.1 RDW 12.9 Plt Count 223 MPV 10.1 Gran % Lymph % (Auto) [place] % (Auto) Eos % (Auto) Baso % (Auto) Gran # Lymph # (Auto) [place] # (Auto) Eos # (Auto) Baso # (Auto) Sodium 137 Potassium 4.7 Chloride 101 Carbon Dioxide 27 Anion Gap 14 BUN 22 H Creatinine 0.7 Est GFR ( Amer) > 60 Est GFR (Non-Af Amer) > 60 Random Glucose 85 Hemoglobin A1c 5.4 Calcium 10.3 Magnesium Iron TIBC % Saturation Total Bilirubin AST ALT Alkaline Phosphatase Total Protein Albumin Globulin Albumin/Globulin Ratio Triglycerides Cholesterol LDL Cholesterol Direct HDL Cholesterol Vitamin B12 Folate Free T4 TSH 3rd Generation Urine Color Urine Appearance Urine pH Ur Specific [place] Urine Protein Urine Glucose (UA) Urine Ketones Urine Blood Urine Nitrate Urine Bilirubin Urine Urobilinogen Ur Leukocyte Esterase Urine RBC Urine WBC Ur Epithelial Cells Amorphous Sediment Urine Bacteria Salicylates Urine Opiates Screen Urine Methadone Screen Acetaminophen Ur Barbiturates Screen Ur Phencyclidine Scrn Ur Amphetamines Screen U Benzodiazepines Scrn U Oth Cocaine Metabols U Cannabinoids Screen Alcohol, Quantitative RPR 05/26/18 07:10 WBC RBC Hgb Hct MCV MCH MCHC RDW Plt Count MPV Gran % Lymph % (Auto) [place] % (Auto) Eos % (Auto) Baso % (Auto) Gran # Lymph # (Auto) [place] # (Auto) Eos # (Auto) Baso # (Auto) Sodium Potassium Chloride Carbon Dioxide Anion Gap BUN Creatinine Est GFR ( Amer) Est GFR (Non-Af Amer) Random Glucose Hemoglobin A1c Calcium Magnesium Iron TIBC % Saturation Total Bilirubin AST ALT Alkaline Phosphatase Total Protein Albumin Globulin Albumin/Globulin Ratio Triglycerides Cholesterol LDL Cholesterol Direct HDL Cholesterol Vitamin B12 Folate Free T4 TSH 3rd Generation 1.96 Urine Color Urine Appearance Urine pH Ur Specific [place] Urine Protein Urine Glucose (UA) Urine Ketones Urine Blood Urine Nitrate Urine Bilirubin Urine Urobilinogen Ur Leukocyte Esterase Urine RBC Urine WBC Ur Epithelial Cells Amorphous Sediment Urine Bacteria Salicylates Urine Opiates Screen Urine Methadone Screen Acetaminophen Ur Barbiturates Screen Ur Phencyclidine Scrn Ur Amphetamines Screen U Benzodiazepines Scrn U Oth Cocaine Metabols U Cannabinoids Screen Alcohol, Quantitative RPR Consultations:: List each consultation separately and include: 1. Reason for request. 2. Findings. 3. Follow-up Consultations: CONSULTED ON BY DR. HERRERA ON 05/25/18 AND 05/27/18 Summary of Hospital Course include:: 1. Description of specific treatment plan utilized for patients during their course of treatmen. 2. Summarize the time- course for resolution of acute symptoms and/or regressed behaviors. 3. Describe issues identified and worked on during hospitalization. 4. Describe medication utilized. 5. Describe medical problems identified and treated. 6. Reassessment of suicide risk Summary of Hospital Course: DR. BAKER'S PROGRESS NOTE 05/26/18 shortly, patient is a 48 year old female, self reported history of bipolar disorder, multiple suicidal attempts in the past, whose past medical history includes substance abuse, and peptic ulcer disease, patient brought herself to the hospital for evaluation of "manic" episode, uncontrollable anxiety, inability to sleep, possible psychosis which triggered from daughter's anniversary. Patient reported that she called her outpatient psychiatrist at [facility] but "he did not answer" patient was not weight any longer, asked her boyfriend to bring her to the hospital because of anxiety, possible suicidal ideation. patient needs further evaluation and stabilization, observation, medication titration. patient was seen and examined today at the day treatment area, personal hygiene improving, ppatient complained of insomnia, patient reported that she feels "hyper", patient has good insight into her mental illness, patient expressed her concerns "after manic episodes I am usually suicidal, I do want to be suicidal, that's why I am here" pt still reported to feel irritable/mind racing, anxious and depressed. pt is pleasant, trying her best to attend groups. psychotic symptoms are improving. so far pt tolerates meds well, no side effects observed or reported, AIMS 0. no EPS. DR. MANLEY'S PROGRESS NOTE 05/27/18 I reviewed assessment and recent notes. Patient was interviewed in the dayroom. She is groomed and well-oriented to month, year, location and circumstances. Her affect is bright and pleasant, speech is wnl. Patient reports that she is feeling "a lot better". Feels the medications are helping to calm her down. Anxiety is better and sleep has improved She estimates that she slept 6 hours last night. She denies any side effects or new discomfort or pain. She appears comfortable and appropriately social with other patients. Staff note that she has been bright, interactive with clear and connected thoughts. she can tolerate groups without any behavioral issues. Impulse control, insight and judgement are improving. DR. MANLEY'S DISCHARGE NOTE 05/28/18 I interviewed patient at bedside to assess continued stability for discharge. Patient is alert and well-oriented to month, year and circumstances. Eye contact is good. Patient feels improved and denies any suicidal thoughts or thoughts to harm others. Affect is calm and appropriately reactive. Patient denies hallucinations and is not responding to internal stimuli. Thought process is clear and coherent. Patient feels comfortable with discharge today and denies any new concerns. Roney es acute discomfort or pain. Tolerating medications and denies any issues with them. Delusions and paranoia were not elicited on day of discharge. - Final Diagnosis (DSM 5) Condition upon Discharge: GOOD DSM 5: bipolar disorder type I, most recent episode mixed, severe, with psychosis cannabis abuse Stimulants abuse Disposition: HOME/ ROUTINE Follow-up Treatment Plan: PLEASE REFER TO SOCIAL WORK NOTE FOR AFTERCARE RECOMMENDATIONS Called [facility] [phone] and authorized 15 day supply with 1 RF of the following medications: Abilify 5 mg AMHS Valium 5 mg po TID Depakote 250 mg po HS Nicoderm CQ 7 mg patch applied daily Effexor 37.5 mg po daily Ambien 5 mg HS prn: insomnia - Smoking Cessation Smoking Cessation Medication prescribed: Yes
--- NOTE | 2018-05-30 13:25 | PN ---
DATE: 05/28/2018 SUBJECTIVE: The patient is a 48-year-old female. The patient was seen and examined at the bedside on 05/28/2018. The patient is very happy to go home, feeling fine. Anxiety is over. No fever, no chills. No nausea, vomiting, diarrhea. No hematochezia. No swelling of the legs. No chest pain or palpitation. No shortness of breath. No headache, no dizziness. No suicidal or homicidal ideation. PHYSICAL EXAMINATION: VITAL SIGNS: Reviewed by me, stable. LABORATORY DATA: White blood cells 8.1, hemoglobin 16.9, hematocrit 49.5, platelets 223. Sodium 137, potassium 4.7, BUN 22, creatinine 0.7. Hemoglobin A1c 5.4. ASSESSMENT AND PLAN: The patient is a 48-year-old lady with hematuria, drug abuse. Cocaine and cannabinoid are positive in her system. RPR negative. History of bipolar disorder, multiple suicide attempts in the past, history of peptic ulcer disease, getting proton-pump inhibitors, history of thyroid problem, was brought by her son in the hospital for manic episode, uncontrollable anxiety, insomnia, psychosis, which triggered from the daughter's anniversary of . The patient was seen by the psychiatrist. The patient's pharmacy was [facility]. It was called for medications by Dr. Argueta. The patient is very cooperative. GI/DVT prophylaxis given. We will follow up with primary care physician and psychiatrist. Debra Galeano MD
== END 2018-05-28 12:09 | disposition home or self-care (01) | DRG 885 ==
LOC: ED 08:53 → ERH 13:32 → PSYC 15:10
PROVIDERS: ADMIT Psychiatry & Neurology Psychiatry; ATTEND Psychiatry & Neurology Psychiatry
DX: F31.60 Bipolar disorder, current episode mixed, unspecified (principal); F11.20 Opioid dependence, uncomplicated; F12.10 Cannabis abuse, uncomplicated; F20.9 Schizophrenia, unspecified; F43.10 Post-traumatic stress disorder, unspecified; G25.81 Restless legs syndrome; G47.00 Insomnia, unspecified; J44.9 Chronic obstructive pulmonary disease, unspecified; K21.9 Gastro-esophageal reflux disease without esophagitis; Z87.11 Personal history of peptic ulcer disease; Z87.891 Personal history of nicotine dependence; Z91.5 Personal history of self-harm; Z98.891 History of uterine scar from previous surgery; R31.9 Hematuria, unspecified; E07.9 Disorder of thyroid, unspecified

== ENCOUNTER 2018-07-26 13:37 | Emergency (ER) | payer MEDICARE, OTHER ==
[2018-07-26 14:49] VITALS: BP 163/95; PULSE 72; RESP 18; TEMP 98.1; O2SAT 94; BMI 19.3
--- NOTE | 2018-07-26 15:28 | ED PDOC ---
Arrival/HPI - History of Present Illness Narrative History of Present Illness (Text): 07/26/18 15:20 48F with psych pmhx presents to ED with 4wk hx of L shoulder pain. Pt slipped down stairs, fell on butt and on L side. Pt felt the pain immediately after the fall. Pt has been taking ibuprofen but has had little relief. Reports limited active ROM of the L arm. Pt is left hand dominant and is limited now in her ADLs. Pt denies any change of color, acute swelling, numbness, loss of service center representative strength, loss of pulses in the affected extremity. Pt denies LOC during fall, can recall events before and after clearly, denies vision changes, cp, sob nausea, vomiting, fc, palps. 07/26/18 15:31 Time/Duration: < month Symptom Onset: Sudden Symptom Course: Unchanged Quality: Aching Severity Level: Moderate Context: Walking, Slipped <Addy Mace - Last Filed: 07/26/18 15:31> <Pema Slaughter - Last Filed: 07/26/18 17:03> - General Chief Complaint: Upper Extremity Problem/Injury Time Seen by Provider: 07/26/18 14:12 Past Medical History - Provider Review Nursing Documentation Reviewed: Yes - Infectious Disease Hx of Infectious Diseases: None - Tetanus Immunization Tetanus Immunization: Up to Date - Past Medical History Past Medical History: No Previous - Cardiac Hx Cardiac Disorders: No Hx Pacemaker: No - Pulmonary Hx Respiratory Disorders: No - Neurological Hx Paralysis: No - Hematological/Oncological Hx Blood Transfusions: No - Musculoskeletal/Rheumatological Hx Musculoskeletal Disorders: No - Psychiatric Hx Psychophysiologic Disorder: Yes Hx Bipolar Disorder: Yes Hx Emotional Abuse: No Hx Physical Abuse: No Hx Substance Use: Yes (SMOKES MARIJUANA NIGHTLY "IT HELPS ME SLEEP") - Surgical History Hx Section: Yes - Anesthesia Hx Anesthesia Reactions: No Hx Malignant Hyperthermia: No - Suicidal Assessment Feels Threatened In Home Enviroment: No <Addy Mace - Last Filed: 07/26/18 15:31> Family/Social History - Physician Review Nursing Documentation Reviewed: Yes Family/Social History: Unknown Family HX Smoking Status: Light Smoker < 10 Cigarettes Daily Hx Alcohol Use: Yes (sober 10yrs) Hx Substance Use: Yes (SMOKES MARIJUANA NIGHTLY "IT HELPS ME SLEEP") Substance used: heroin Hx Substance Use Treatment: No <Addy Mace - Last Filed: 07/26/18 15:31> Allergies/Home Meds <Addy Mace - Last Filed: 07/26/18 15:31> <Pema Slaughter - Last Filed: 07/26/18 17:03> Allergies/Adverse Reactions: Allergies No Known Allergies Allergy (Verified 05/24/18 02:31) Home Medications: Home Meds Medication Instructions Recorded Confirmed ARIPiprazole [Abilify] 5 mg PO DAILY 12/09/14 05/26/18 Dexlansoprazole [Dexilant] 60 mg PO DAILY 09/24/17 05/26/18 Divalproex [Depakote ER] 500 mg PO HS 09/24/17 05/26/18 diaZEpam [Valium] 5 mg PO TID 09/24/17 05/26/18 traZODone [Desyrel] 100 mg PO HS 09/24/17 05/26/18 Cholecalciferol (Vitamin D3) 50,000 unit PO MON 10/01/17 05/26/18 [Vitamin D3] Review of Systems - Physician Review All systems were reviewed & negative as marked: Yes - Review of Systems Constitutional: absent: Fevers, Night Sweats Eyes: absent: Vision Changes Respiratory: absent: SOB Cardiovascular: absent: Syncope Gastrointestinal: absent: Abdominal Pain, Nausea, Vomiting Musculoskeletal: Arthralgias (L jayy) Neurological: absent: Headache, Gait Changes <Addy Mace - Last Filed: 07/26/18 15:31> Physical Exam Vital Signs Reviewed: Yes Vital Signs Temp Pulse Resp BP Pulse Ox 07/26/18 14:47 98.1 F 72 18 163/95 H 94 L Temperature: Afebrile Blood Pressure: Hypertensive Pulse: Regular Respiratory Rate: Normal Appearance: Positive for: Non-Toxic, Uncomfortable Pain Distress: Moderate Mental Status: Positive for: Alert and Oriented X 3 - Systems Exam Head: Present: Atraumatic, Normocephalic Pupils: Present: PERRL Extroacular Muscles: Present: EOMI Conjunctiva: Present: Normal Mouth: Present: Moist Mucous Membranes Pharnyx: No: ERYTHEMA Neck: Present: Normal Range of Motion Respiratory/Chest: Present: Clear to Auscultation. No: Wheezes Cardiovascular: Present: Normal S1, S2. No: Murmurs Upper Extremity: Present: NORMAL PULSES, Neurovascularly Intact, Capillary Refill < 2s, Norm 2-Pt Discrimination. No: Cyanosis, Normal ROM (worse in abduction and internal rotation), Swelling Neurological: Present: CN II-XII Intact, Speech Normal, Motor Func Grossly Intact, Memory Normal Skin: Present: Warm, Dry, Normal Color Psychiatric: Present: Alert, Oriented x 3, Normal Concentration, Normal Mood. No: Anxious, Agitated <Addy Mace - Last Filed: 07/26/18 15:31> Vital Signs Temp Pulse Resp BP Pulse Ox 07/26/18 14:47 98.1 F 72 18 163/95 H 94 L <Pema Slaughter - Last Filed: 07/26/18 17:03> Medical Decision Making ED Course and Treatment: 07/26/18 15:37 #Left Shoulder injury -L jayy X ray -Toradol 60mg IM STAT - RAD Interpretation Radiology Orders: 07/26/18 15:16 SHOULDER LEFT [RAD] Stat - Medication Orders Current Medication Orders: Discontinued Medications Ketorolac Tromethamine (Toradol) 60 mg IM STAT STA Stop: 07/26/18 15:16 <Addy Mace - Last Filed: 07/26/18 15:31> ED Course and Treatment: 07/26/18 16:54 Patient seen by resident and then evaluated by me. Complaining of 4 week history of L sided shoulder pain after mechanical fall 4 weeks ago. Normal ROM but reporting pain at L shoulder with ROM. Distal pulses intact. No swelling or deformity. Xray negative for fracture. On reevaluation after toradol the patient has full and normal painless ROM. Instructed to follow-up with PMD 07/26/18 17:02 - RAD Interpretation Radiology Orders: 07/26/18 15:16 SHOULDER LEFT [RAD] Stat - Medication Orders Current Medication Orders: Discontinued Medications Ketorolac Tromethamine (Toradol) 60 mg IM STAT STA Stop: 07/26/18 15:16 <Pema Slaughter - Last Filed: 07/26/18 17:03> - PA / DIRECTOR SOCIAL / Resident Statement / has reviewed & agrees with the documentation as recorded. MD/DO has examined the patient and agrees with the treatment plan. <Pema Slaughter - Last Filed: 07/26/18 17:03> Disposition/Present on Arrival - Present on Arrival History of DVT/PE: No History of Uncontrolled Diabetes: No Urinary Catheter: No History of Decub. Ulcer: No History Surgical Site Infection Following: None <Addy Mace - Last Filed: 07/26/18 15:31> - Present on Arrival Any Indicators Present on Arrival: No - Disposition Have Diagnosis and Disposition been Completed?: Yes Disposition Time: 16:55 Patient Plan: Discharge <Pema Slaughter - Last Filed: 07/26/18 17:03> - Disposition Diagnosis: Shoulder pain, left Disposition: HOME/ ROUTINE Patient Problems: Current Active Problems Problem Status Onset Shoulder pain, left Acute Condition: GOOD Additional Instructions: Follow-up with PMD within 2 days. Return to Emergency department if condition worsens. motrin for pain. Prescriptions: Ibuprofen [Motrin] 400 mg PO Q6 PRN #30 tab PRN Reason: Pain, Moderate (4-7) Referrals: Debra Galeano MD [Primary Care Provider] - Follow up with primary Forms: [employer] (Lithuanian)
--- NOTE | 2018-07-26 16:35 | RAD ---
Date of service: 07/26/2018 PROCEDURE: Radiographs of the Left Shoulder HISTORY: s/p fall, L jayy pain COMPARISON: No prior. FINDINGS: BONES: Normal. No fracture. JOINTS: Normal. Glenohumeral and acromioclavicular joints preserved. No osteoarthritis. SOFT TISSUES: Normal. OTHER FINDINGS: None. IMPRESSION: Normal radiographs of the left shoulder.
== END 2018-07-26 17:00 | disposition home or self-care (01) ==
LOC: ED 13:37
DX: M25.512 Pain in left shoulder (principal)
CPT/HCPCS: 73030; 96372; 99283; J1885

== ENCOUNTER 2018-08-08 17:20 | Emergency (ER) | payer MEDICARE, OTHER ==
[2018-08-08 17:21] VITALS: BMI 19.3
[2018-08-08 18:56] VITALS: BP 131/77; PULSE 92; RESP 18; TEMP 98.4; O2SAT 98
[2018-08-08 19:02] LABS: BASO # 0.03 K/mm3 (0.0-2.0); BASO % 0.4 % (0.0-3.0); EOS # 0.3 (0.0-0.7); EOS % 4.5 % (1.5-5.0); GRAN # 3.76 (1.4-6.5); GRAN % 50.7 % (50.0-68.0); HEMOGLOBIN 12.1 g/dL (12.0-16.0); LYMPH # 2.8 (1.2-3.4); LYMPH % 37.2 % (22.0-35.0); MEAN CELL VOLUME 98.4 fl (80.0-105.0); MEAN CORPUSCULAR HGB CONC 32.5 g/dl (31.0-37.0); MEAN PLATELET VOLUME 10.3 fl (7.0-11.0); MONO # 0.5 (0.1-0.6); MONO % 7.2 % (1.0-6.0); RBC 3.78 10^6/uL (3.5-6.1); RED CELL DISTRIBUTION WIDTH 13.6 % (11.5-14.5); WHITE BLOOD COUNT 7.4 10^3/uL (4.5-11.0)
[2018-08-08 19:21] LABS: ALB/GLOB RATIO 1.1 (1.1-1.8); ALBUMIN 4.2 g/dL (3.0-4.8); ALT/SGPT 69 U/L (7-56); AST/SGOT 52 U/L (14-36); BLOOD UREA NITROGEN 17 mg/dL (7-21); CALCIUM 9.5 mg/dL (8.4-10.5); GFR NON-AFRICAN AMERICAN > 60
--- NOTE | 2018-08-08 19:25 | ED PDOC ---
Arrival/HPI - General Chief Complaint: Lower Extremity Problem/Injury Time Seen by Provider: 08/08/18 17:35 Historian: Patient - History of Present Illness Narrative History of Present Illness (Text): 08/08/18 17:45 48 year old female, whose past medical history includes substance abuse, bipolar, depression, and anxiety, presents to the emergency department complaining of left lower leg pain, redness, and swelling for the past 4 days. Patient states prior to the pain, she had some small open wounds to the left lower leg from scratching. Patient states the pain is present at rest and worse when ambulating. She reports she took 2 Tylenol yesterday without relief. Patient denies any fever, chills, chest pain, shortness of breath, nausea, vomiting, diarrhea, urinary symptoms, back pain, neck pain, headache, dizziness, numbness/paresthesia, or any other complaints. PMD: Dr. Galeano Time/Duration: Other (4 days) Symptom Onset: Gradual Symptom Course: Unchanged Activities at Onset: Light Context: Home Past Medical History - Provider Review Nursing Documentation Reviewed: Yes - Infectious Disease Hx of Infectious Diseases: None - Tetanus Immunization Tetanus Immunization: Up to Date - Past Medical History Past Medical History: No Previous - Cardiac Hx Cardiac Disorders: No Hx Pacemaker: No - Pulmonary Hx Respiratory Disorders: No - Neurological Hx Paralysis: No - Hematological/Oncological Hx Blood Transfusions: No - Musculoskeletal/Rheumatological Hx Musculoskeletal Disorders: No - Psychiatric Hx Psychophysiologic Disorder: Yes Hx Anxiety: Yes Hx Bipolar Disorder: Yes Hx Depression: Yes Hx Emotional Abuse: No Hx Physical Abuse: No Hx Substance Use: Yes (SMOKES MARIJUANA NIGHTLY "IT HELPS ME SLEEP") - Surgical History Hx Section: Yes (1992) - Anesthesia Hx Anesthesia: Yes Hx Anesthesia Reactions: No Hx Malignant Hyperthermia: No - Suicidal Assessment Feels Threatened In Home Enviroment: No Family/Social History - Physician Review Nursing Documentation Reviewed: Yes Family/Social History: No Known Family HX Smoking Status: Light Smoker < 10 Cigarettes Daily Hx Alcohol Use: No (sober 10yrs) Hx Substance Use: Yes (SMOKES MARIJUANA NIGHTLY "IT HELPS ME SLEEP") Substance used: marijuana Hx Substance Use Treatment: No Allergies/Home Meds Allergies/Adverse Reactions: Allergies No Known Allergies Allergy (Verified 08/08/18 17:30) Home Medications: Home Meds Medication Instructions Recorded Confirmed ARIPiprazole [Abilify] 5 mg PO DAILY 12/09/14 05/26/18 Dexlansoprazole [Dexilant] 60 mg PO DAILY 09/24/17 05/26/18 Divalproex [Depakote ER] 500 mg PO HS 09/24/17 05/26/18 diaZEpam [Valium] 5 mg PO TID 09/24/17 05/26/18 traZODone [Desyrel] 100 mg PO HS 09/24/17 05/26/18 Cholecalciferol (Vitamin D3) 50,000 unit PO MON 10/01/17 05/26/18 [Vitamin D3] Review of Systems - Physician Review All systems were reviewed & negative as marked: Yes - Review of Systems Constitutional: Normal. absent: Fatigue, Fevers, Other (Chills) Eyes: Normal. absent: Vision Changes ENT: Normal. absent: Hearing Changes, Sinus Congestion Respiratory: Normal. absent: SOB, Cough Cardiovascular: Normal. absent: Chest Pain, Palpitations, Syncope Gastrointestinal: absent: Diarrhea, Nausea, Vomiting Genitourinary Female: absent: Dysuria, Frequency, Hematuria Musculoskeletal: Other (leg pain, redness, swelling ). absent: Back Pain, Neck Pain Skin: Cellulitis (left lower leg). absent: Abscess Neurological: absent: Headache, Dizziness, Focal Weakness, Other (numbness) Endocrine: Normal Hemo/Lymphatic: Normal Psychiatric: Normal Physical Exam Vital Signs Reviewed: Yes Vital Signs Temp Pulse Resp BP Pulse Ox 08/08/18 18:34 98.4 F 92 H 18 131/77 98 Temperature: Afebrile Blood Pressure: Normal Pulse: Regular Respiratory Rate: Normal Appearance: Positive for: Well-Appearing, Non-Toxic, Comfortable Pain Distress: None Mental Status: Positive for: Alert and Oriented X 3 - Systems Exam Head: Present: Atraumatic, Normocephalic Pupils: Present: PERRL Extroacular Muscles: Present: EOMI Conjunctiva: Present: Normal Mouth: Present: Moist Mucous Membranes Neck: Present: Normal Range of Motion. No: Meningeal Signs Respiratory/Chest: Present: Clear to Auscultation, Good Air Exchange. No: Respiratory Distress, Accessory Muscle Use Cardiovascular: Present: Regular Rate and Rhythm, Normal S1, S2. No: Murmurs Abdomen: Present: Normal Bowel Sounds. No: Tenderness, Distention, Peritoneal Signs Upper Extremity: Present: Normal Inspection, Normal ROM, NORMAL PULSES, Neurovascularly Intact, Capillary Refill < 2s. No: Cyanosis, Edema, Tenderness, Swelling Lower Extremity: Present: NORMAL PULSES, Normal ROM, Tenderness (over area of erythema ), Swelling (lower leg, ankle, foot swelling. ), Erythema (5.0cm by 4.0cm area of erythema of left anterior lower leg with central small scab), Temperature Abnormalties (left anterior lower leg warm to touch), Neurova scularly Intact, Capillary Refill < 2 s. No: Edema, CALF TENDERNESS, Deformity, Other (no streaking or fluctuance) Neurological: Present: GCS=15, CN II-XII Intact, Speech Normal, Motor Func Grossly Intact, Normal Sensory Function. No: Gait Normal (limping secondary to pain) Skin: Present: Warm, Dry, Normal Color. No: Rashes Lymphatic: No: Cervical Adenopathy Psychiatric: Present: Alert, Oriented x 3, Normal Insight, Normal Concentration, Normal Affect, Normal Mood Medical Decision Making ED Course and Treatment: 08/08/18 17:45 Impression: 48 year old female presents complaining of left lower leg pain, redness, and swelling that began 4 days. Patient prior to pain, patient had a small open wound on left lower leg from scratching. Plan: -- POC preg -- Labs -- Left Ankle X-ray -- Left Tib/Fib X-ray -- Duplex Lower Extrm Vein left US -- Toradol -- Reassess and disposition Prior Visits: Notes and results from previous visits were reviewed. Progress Notes: Doppler used to confirm pedal pulses. Pedal pulses 2/2 bilaterally. Pt reports decreased pain after medications POC negative Labwork unremarkable, no leukocytosis Venous duplex prelim reading negative for DVT Will start patient on outpatient antibiotics for suspicion of cellulitis, first dose of keflex here, and recommend pt followup with Dr. Galeano tomorrow. Pt afebrile with no leukocytosis. Skin marker used to outline redness. Patient verbalizes understanding and states she will followup with her PMD tomorrow. Diagnostic testing results and plan of care discussed with patient. Strict instructions given regarding prescription use, importance of followup, and signs/symptoms to return to ER including worsening pain, redness, swelling, or any other new/worsening symptoms. Pt verbalized understanding of discussion. Patient is A&Ox3, ambulating with steady gait, with vital signs stable for discharge. - Lab Interpretations Lab Results: Total Bilirubin 0.2 mg/dL (0.2-1.3) 08/08/18 18:54 AST 52 U/L (14-36) H D 08/08/18 18:54 ALT 69 U/L (7-56) H 08/08/18 18:54 Alkaline Phosphatase 86 U/L (38-126) 08/08/18 18:54 Total Protein 7.9 g/dL (5.8-8.3) 08/08/18 18:54 Albumin 4.2 g/dL (3.0-4.8) 08/08/18 18:54 Globulin 3.7 gm/dL 08/08/18 18:54 Albumin/Globulin Ratio 1.1 (1.1-1.8) 08/08/18 18:54 08/08/18 18:54 08/08/18 18:54 Lab Results 08/08/18 18:54: Sodium 140, Potassium 3.7, Chloride 104, Carbon Dioxide 29, Anion Gap 10, BUN 17, Creatinine 0.7, Est GFR ( Amer) > 60, Est GFR (Non- Af Amer) > 60, Random Glucose 90, Calcium 9.5, Total Bilirubin 0.2, AST 52 H D, ALT 69 H, Alkaline Phosphatase 86, Total Protein 7.9, Albumin 4.2, Globulin 3.7, Albumin/Globulin Ratio 1.1 08/08/18 18:54: WBC 7.4 D, RBC 3.78, Hgb 12.1 D, Hct 37.2, MCV 98.4 D, MCH 32.0, MCHC 32.5, RDW 13.6, Plt Count 193, MPV 10.3, Gran % 50.7, Lymph % (Auto) 37.2 H, [place] % (Auto) 7.2 H, Eos % (Auto) 4.5, Baso % (Auto) 0.4, Gran # 3.76, Lymph # (Auto) 2.8, [place] # (Auto) 0.5, Eos # (Auto) 0.3, Baso # (Auto) 0.03 I have reviewed the lab results: Yes - RAD Interpretation Radiology Orders: 01/20/19 17:50 DUPLEX LOWER EXTRM VEIN LEFT [US] Stat 08/08/18 17:51 ANKLE LEFT 3 VIEWS ROUTINE [RAD] Stat TIBIA FIBULA LEFT [RAD] Stat 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 No Sleep Is patient sleeping during reassessment? No Presence of Pain Presence of Pain Yes Pain Scale Used Protocol: PSCALES Pain Scale Used Numeric Location Left, Right or Bilateral Left Pain Location Body Site Ankle Foot Description Description Burning Intensity of Pain at present 8 Pain Behavior Moaning Facial Grimacing IVP Administration Document 08/08/18 19:20 EB (Rec: 08/08/18 19:21 [id number]) Charges for Administration # of IVP Administrations 1 - Scribe Statement The provider has reviewed the documentation as recorded by the Scribe Elizabeth Head Provider Scribe Attestation: All medical record entries made by the Scribe were at my direction and personally dictated by me. I have reviewed the chart and agree that the record accurately reflects my personal performance of the history, physical exam, medical decision making, and the department course for this patient. I have also personally directed, reviewed, and agree with the discharge instructions and disposition. Disposition/Present on Arrival - Present on Arrival Any Indicators Present on Arrival: No History of DVT/PE: No History of Uncontrolled Diabetes: No Urinary Catheter: No History of Decub. Ulcer: No History Surgical Site Infection Following: None - Disposition Have Diagnosis and Disposition been Completed?: Yes Diagnosis: Cellulitis Disposition: HOME/ ROUTINE Disposition Time: 20:00 Patient Plan: Discharge Condition: IMPROVED Discharge Instructions (ExitCare): Cellulitis (ED) Additional Instructions: Naproxen daily for pain with food as needed for pain Keflex every 6 hours for 1 week Rest, no strenuous activity Followup with PMD tomorrow Return to ER with any new/worsening symptoms Prescriptions: Cephalexin [Keflex] 500 mg PO QID 7 Days #28 capsule Naproxen [Naprosyn] 500 mg PO DAILY PRN #14 tablet PRN Reason: Pain, Moderate (4-7) Referrals: Debra Galeano MD [Family Provider] - Follow up with primary Forms: [employer] (Icelandic), WORK NOTE
--- NOTE | 2018-08-09 08:56 | US ---
PROCEDURE: Left lower extremity venous US HISTORY: Leg pain and swelling. Evaluate for DVT. PHYSICIAN(S): Prosper Le MD. TECHNIQUE: Duplex sonography and color-flow Doppler with graded compression were used to evaluate the deep venous system of the left lower extremity. FINDINGS: The visualized deep venous system of the left lower extremity is sonographically normal and compressible. Normal wave forms and augmentation are seen. There is no sonographic evidence for deep venous thrombosis in the visualized segments of the left lower extremity. IMPRESSION: 1. No sonographic evidence for deep venous thrombosis in the visualized segments of the left lower extremity.
--- NOTE | 2018-08-09 10:32 | RAD ---
Date of service: 08/08/2018 PROCEDURE: Left Ankle Radiographs. HISTORY: left leg pain, swelling COMPARISON: None available. FINDINGS: BONES: Normal. No fracture. JOINTS: Normal. No osteoarthritis. Ankle mortise maintained. Talar dome intact SOFT TISSUES: Normal. OTHER FINDINGS: None. IMPRESSION: Normal left ankle radiographs.
--- NOTE | 2018-08-09 10:34 | RAD ---
Date of service: 08/08/2018 PROCEDURE: Radiographs of the left tibia and fibula. HISTORY: left leg pain, swelling COMPARISON: None available. TECHNIQUE: Frontal and lateral views obtained. FINDINGS: BONES: No fracture or destructive lesion. JOINT SPACES: Unremarkable. OTHER FINDINGS: None. IMPRESSION: Unremarkable radiographs of the left tibia and fibula.
== END 2018-08-08 20:18 | disposition home or self-care (01) ==
LOC: ED 17:20
DX: L03.116 Cellulitis of left lower limb (principal); F17.210 Nicotine dependence, cigarettes, uncomplicated
CPT/HCPCS: 73590; 73610; 80053; 81025; 85025; 93971; 96374; 99284; J1885

== ENCOUNTER 2018-08-14 15:33 | Emergency (ER) | payer MEDICARE, OTHER ==
[2018-08-14 15:33] VITALS: BMI 19.3
--- NOTE | 2018-08-14 17:36 | ED PDOC ---
Arrival/HPI - General Chief Complaint: Lower Extremity Problem/Injury Time Seen by Provider: 08/14/18 15:40 Historian: Patient - History of Present Illness Narrative History of Present Illness (Text): 08/14/18 17:57 48 y/o female with no significant PMH presents to the ED for evaluation of left lower leg pain. Pt was seen here 6 days ago for left lower leg cellulitis by me. Redness, swelling, and tenderness to the left lower anterior leg has improved significantly. However, patient states she is almost out of her antibiotics (that she is taking as prescribed) and feels that the redness "is coming back" and complains of persistent pain to the area. Asking for a refill on pain medication. Has not yet followed up with Dr. Galeano, but states she has an appointment Thursday. Denies fever, chills, nausea, vomiting, dizziness, abdominal pain, weakness, numbness, paresthesias, new wounds, trauma/injury, or any other associated complaints. Past Medical History - Provider Review Nursing Documentation Reviewed: Yes - Infectious Disease Hx of Infectious Diseases: None - Tetanus Immunization Tetanus Immunization: Up to Date - Reproductive Menopause: Yes - Past Medical History Past Medical History: No Previous - Cardiac Hx Cardiac Disorders: No Hx Pacemaker: No - Pulmonary Hx Respiratory Disorders: No - Neurological Hx Paralysis: No - Hematological/Oncological Hx Blood Transfusions: No - Musculoskeletal/Rheumatological Hx Musculoskeletal Disorders: No - Psychiatric Hx Psychophysiologic Disorder: Yes Hx Anxiety: Yes Hx Bipolar Disorder: Yes Hx Depression: Yes Hx Emotional Abuse: No Hx Physical Abuse: No Hx Substance Use: Yes (SMOKES MARIJUANA NIGHTLY "IT HELPS ME SLEEP") - Surgical History Hx Section: Yes (1992) - Anesthesia Hx Anesthesia: Yes Hx Anesthesia Reactions: No Hx Malignant Hyperthermia: No - Suicidal Assessment Feels Threatened In Home Enviroment: No Family/Social History - Physician Review Nursing Documentation Reviewed: Yes Family/Social History: No Known Family HX Smoking Status: Light Smoker < 10 Cigarettes Daily Hx Alcohol Use: No (sober 10yrs) Hx Substance Use: Yes (SMOKES MARIJUANA NIGHTLY "IT HELPS ME SLEEP") Substance used: marijuana Hx Substance Use Treatment: No Allergies/Home Meds Allergies/Adverse Reactions: Allergies No Known Allergies Allergy (Verified 08/08/18 17:30) Home Medications: Home Meds Medication Instructions Recorded Confirmed diaZEpam [Valium] 5 mg PO TID 09/24/17 08/14/18 Review of Systems - Review of Systems Constitutional: Normal. absent: Fevers Respiratory: Normal. absent: SOB Cardiovascular: Normal. absent: Chest Pain Gastrointestinal: Normal. absent: Abdominal Pain, Nausea, Vomiting Musculoskeletal: Arthralgias (left lower leg). absent: Back Pain, Joint Swelling Skin: Cellulitis. absent: Rash Neurological: Normal. absent: Headache, Dizziness, Focal Weakness, Gait Changes Physical Exam Vital Signs Reviewed: Yes Vital Signs Temp Pulse Resp BP Pulse Ox 08/14/18 15:33 98.7 F 89 18 101/71 96 Temperature: Afebrile Blood Pressure: Normal Pulse: Regular Respiratory Rate: Normal Appearance: Positive for: Well-Appearing, Non-Toxic, Comfortable Pain Distress: None Mental Status: Positive for: Alert and Oriented X 3 - Systems Exam Head: Present: Atraumatic, Normocephalic Pupils: Present: PERRL Extroacular Muscles: Present: EOMI Conjunctiva: Present: Normal Mouth: Present: Moist Mucous Membranes Neck: Present: Normal Range of Motion. No: Meningeal Signs, MIDLINE TENDERNESS, Paraspinal Tenderness Respiratory/Chest: Present: Clear to Auscultation, Good Air Exchange. No: Respiratory Distress, Accessory Muscle Use Cardiovascular: Present: Regular Rate and Rhythm, Normal S1, S2, Peripheal Pulses Present Abdomen: Present: Normal Bowel Sounds. No: Tenderness, Distention, Peritoneal Signs, Rebound, Guarding Upper Extremity: Present: Normal ROM Lower Extremity: Present: Normal Inspection, NORMAL PULSES (bilateral pedal pulses 2/2), Normal ROM, Tenderness (mild over anterior lower left leg), Erythema (very mild to left lower anterior leg, non-circumferential, within skin marker, no streaking), Temperature Abnormalties (lower left leg with very mild increased warmth over area of erythema, improved), Neurovascularly Intact, Capillary Refill < 2 s. No: Edema, CALF TENDERNESS, Cyanosis, Andrew's Sign, Swelling (improved), Deformity, Other (no open wounds, no fluctuance) Neurological: Present: GCS=15, CN II-XII Intact, Speech Normal, Motor Func Grossly Intact, Normal Sensory Function, Gait Normal Skin: Present: Warm, Dry, Erythematous (left lower leg, improved). No: Rashes, Hot, Laceration, Abscess, Abrasion Lymphatic: No: Cervical Adenopathy Psychiatric: Present: Alert, Oriented x 3, Normal Insight, Normal Concentration, Normal Affect, Normal Mood Medical Decision Making ED Course and Treatment: Redness and swelling of left lower extremity has improved significantly since last visit. Skin marker still intact, redness within margins. Pulses palpable 2/2 bilaterally. Sensation, motor intact. Full strength bilaterally. Calves nontender, non swollen. No need for repeat imaging. Pt evaluated and examined at bedside by ED attending Dr. Rios, who suggests Bactrim DS bid x 7 days and continue with scheduled PMD followup. Diagnostic testing results and plan of care discussed with patient. Strict instructions given regarding prescription use, importance of followup, and signs/symptoms to return to ER including numbness, paresthesias, worseinng redness, swelling, or pain or any other new/worsening symptoms. Pt verbalized understanding of discussion. Patient is A&Ox3, ambulating with steady gait, with vital signs stable for discharge. Disposition/Present on Arrival - Present on Arrival Any Indicators Present on Arrival: No History of DVT/PE: No History of Uncontrolled Diabetes: No Urinary Catheter: No History of Decub. Ulcer: No History Surgical Site Infection Following: None - Disposition Have Diagnosis and Disposition been Completed?: Yes Diagnosis: Cellulitis Disposition: HOME/ ROUTINE Disposition Time: 17:45 Patient Plan: Discharge Condition: IMPROVED Discharge Instructions (ExitCare): Cellulitis (ED) Additional Instructions: Take bactrim every 12 hours for [address] Galeano as scheduled Return to Er with any new/worsening symptoms Prescriptions: Ibuprofen [Motrin Tab] 600 mg PO Q8H #30 tab Sulfamethoxazole/Trimethoprim [Bactrim DS 800 mg-160 mg] 1 tab PO Q12H #14 tab Referrals: Debra Galeano MD [Primary Care Provider] - Follow up with primary Forms: [employer] (Hungarian), WORK NOTE
[2018-08-14 17:51] VITALS: BP 106/56; RESP 19; TEMP 98; O2SAT 99
[2018-08-14 18:00] VITALS: PULSE 73
== END 2018-08-14 17:57 | disposition home or self-care (01) ==
LOC: ED 15:33
DX: L03.116 Cellulitis of left lower limb (principal); F17.210 Nicotine dependence, cigarettes, uncomplicated